=== PATIENT | male | born 1940 | race Caucasian/White ===

== ENCOUNTER → 2016-12-22 | Day surgery (SDC) | payer OTHER ==
[~2016-12-22] VITALS: Ht 180.3 cm; Wt 97.0 kg
[~2016-12-22] MED LIST: ALBU18002 INH; AMLO-114 PO; BISM262S27 PO; CHOLPOW PO; DIPH-416 PO; FENTANYL CITRATE INJ 50 MCG/1 ML 2 ML VIAL ONE; GLIM4TAB2 PO; HEPARIN SOD (PORCINE) 1000 UNIT/ML 10 ML VIAL ONE; LISI-461 PO; LOPE1TAB25 PO; LORA-741 PO; MIDAZOLAM HCL 1 MG/ML 2ML VIAL ONE; NITROGLYCERIN/D5W 100MCG/ML 20ML SYR ONE; NiCARDipine HCL INJ 2.5 MG/ML 10 ML AMP ONE; ONDA4TAB9 PO; OXYC2.5T3 PO; POTA20TA16 PO; SODI650T8 PO; SPRIN/30 INH; SYMIN/8045 INH
[2016-12-22 07:13] VITALS: BP 155/89; PULSE 75; TEMP 36.7; O2SAT 97; Ht 180.3 cm; Wt 97.0 kg
--- NOTE | 2016-12-22 08:10 | Procedure Note ---
Pre-Mod Sedation Assessment General Date of Moderate Sedation: December 22, 2016. Vital Signs: Vital Signs Past 12 Hours Date Time Temp Pulse Resp B/P Pulse Ox O2 Delivery O2 Flow Rate FiO2 12/22/16 07:13 36.7 75 18 155/89 97 Room Air Review Cardiovascular: regular rate, rhythm, no edema Abdomen: normal bowel sounds, non tender Lungs: chest non-tender, lungs clear Airway Class: III Pre-Sedation Airway Assessment Oral Cavity: Dentures, WNL Able to Visualize Vocal Cords: No Short Thick Neck: No Hx of Sleep Apnea: No Smoking Status: Never Smoker Mallampati Classification: Class III ASA Classification: Class III Procedure Planning Contraindications-for Mod Sed: None Yes Notes The planned sedation has been discussed with the patient and consent obtained. I have identified the patient, determined the appropriateness of sedation and have assessed the patient immediately prior to the procedure. All medicine(s) and interventions are by my order.
--- NOTE | 2016-12-22 08:10 | History & Physical Bridge Note ---
H&P Re-Evaluation Bridge Note: I have examined the patient, reviewed the History & Physical and in the interval since the performance of the History & Physical I have noted the following changes of clinical significance: No changes noted
[2016-12-22 08:27] LABS: BASO ABS # 0.09 K/uL (0-0.2); EOS % 4.1 %; IG% 0.1 %; LYMPH % 30.6 %; LYMPH ABS # 2.85 K/uL (1.2-3.4); MEAN CELL VOLUME 93.2 fL (80-100); MEAN CORPUSCULAR HEMOGLOBIN 31.8 pg (25-34); MEAN PLATELET VOLUME 12.4 fL (7.4-10.4); MONO % 9.7 %; NEUT % 54.5 %; PLATELET COUNT 254 K/uL (130-400); RED BLOOD COUNT 5.47 M/uL (4.7-6.1); WHITE BLOOD COUNT 9.32 K/uL (4.8-10.8)
[2016-12-22 08:34] LABS: INR 1.1 (0.9-1.1)
[2016-12-22 08:37] LABS: COMPLETE YES; MEAN CORPUSCULAR HGB CONC 34.1 g/dl (32-36)
[2016-12-22 08:46] LABS: BUN/CREATININE RATIO 16.5 (10-20); CALCIUM 9.3 mg/dl (8.5-10.1); CREATININE 1.2 mg/dl (0.60-1.40); POTASSIUM 4.6 mmol/L (3.5-5.1)
[2016-12-22 09:41] LABS: ISTAT ARTERIAL BLOOD GAS HCO3 28 meq/L (19-24); ISTAT ARTERIAL BLOOD GAS PCO2 51 mmHg (35-46); ISTAT ARTERIAL BLOOD GAS PO2 < 32 mmHg (80-95); ISTAT ARTERIAL BLOOD GAS pH 7.35 (7.35-7.45); ISTAT CARBON DIOXIDE 30 mEq/l (24-31)
--- NOTE | 2016-12-22 10:04 | Procedure Note ---
Post-Mod Sedation Assessment General Date of Moderate Sedation December 22, 2016. Vital Signs: Vital Signs Past 12 Hours Date Time Temp Pulse Resp B/P Pulse Ox O2 Delivery O2 Flow Rate FiO2 12/22/16 07:13 36.7 75 18 155/89 97 Room Air Review - Discharge Criteria Vital Signs Stable: Yes Alert/Oriented/Conversant: Yes Returned to Baseline Mental St: Yes Nausea Absent/Minimal: Yes Pain/Discomfort/Absent/Minimal: Yes Normal/Baseline Respirations: Yes Active Bleeding?: No Pt Received D/C Instructions: No Prescriptions Given: None Specific Proced. D/C Criteria Distal Pulses Present (Cardiac: Yes Groin site assessed-Card Cath: N/A Voided Prior To Discharge: N/A Discharged Patients Adult Escort/Transportation: Yes
[2016-12-22 10:09] LABS: ISTAT ARTERIAL BLOOD GAS HCO3 27 meq/L (19-24); ISTAT ARTERIAL BLOOD GAS PCO2 48 mmHg (35-46); ISTAT ARTERIAL BLOOD GAS PO2 52 mmHg (80-95); ISTAT ARTERIAL BLOOD GAS pH 7.36 (7.35-7.45); ISTAT CARBON DIOXIDE 28 mEq/l (24-31)
--- NOTE | 2016-12-22 12:37 | Discharge Instructions ---
Discharge Instructions Procedure Procedure Date: December 22, 2016. Reason for Visit: Dyspnea On Exertion. Discharge Discharge Date: December 22, 2016. Discharge Diagnosis: Pulmonary Hypertension Last Recorded Wt (Kilograms): 97 Anesthesia Post Anesthesia Instructions: If you have had General Anesthesia or IV Sedation: * Do not drive today. * Resume driving when surgeon permits. * Do not make important decisions or sign legal documents today. * Call surgeon for: 1. Temperature elevations greater than 101 degrees F. 2. Uncontrollable pain. 3. Excessive bleeding. 4. Persistent nausea and vomiting. 5. Medication intolerance (nausea, vomiting or rash). * For nausea and vomiting use only clear liquids such as: tea, soda, bouillon until nausea subsides, then gradually increase diet as tolerated. * If you have any concerns or questions, call your surgeon's office. If physician is unavailable and it is an emergency, call 911 or go to the nearest emergency room. Instructions Activity Recommendations: limitations as noted below Recommended Home Diet: resume previous diet Allergies: Coded Allergies: Cephalexin (Unverified Allergy, Unknown, UNKNOWN, 12/22/16) Gemfibrozil (Unverified Allergy, Unknown, UNKNOWN, 12/22/16) Lovastatin (Unverified Allergy, Unknown, UNKNOWN, 12/22/16) Follow Up Additional Instructions: ACTIVITY RECOMMENDATIONS: It is common to feel weak and fatigue for a few days. * Do not drive or operate any motorized equipment for the next two days. * Limit stair usage (2 or 3 trips a day only) for the next two days. * Do not lift anything heavier than 10 pounds for the next three days. * Do not engage in vigorous exercise or any sports for the next five days. * You may shower the day after your procedure, but do not immerse the area for three days. Cleanse the site gently with soap and water. SPECIAL CARE INSTRUCTIONS: * You may replace the pressure dressing or band-aid the morning after the procedure. * After your procedure, it is normal to have a small bruise or small lump at the site. Examine your site daily for any change in the bruise or lump, redness, swelling, drainage or numbness. Notify your doctor if any change. BLEEDING: * If there is a small amount of bleeding at the site, lie down and apply firm pressure with a clean cloth for ten minutes. When the bleeding stops, lie quietly keeping the procedure limb straight for six hours. Notify your doctor as soon as possible. * If the bleeding does not stop after ten minutes or if there is a large amount of bleeding or spurting, call 911 immediately. Continue to lie down and hold firm pressure until help arrives. SKIN IRRITATION: * You may experience some redness and/or swelling in the area where radiation was administered. If any skin irritation occurs, please contact your family physician. FOLLOW UP VISIT: Keep any scheduled doctor appointments. Follow-up with: Follow-up with Dr. Valverde in 1 week. Thelma Harrisy Recommendations: Call your doctor if: * Temperature above 101 degrees * Pain not relieved by pain medicine ordered * There is increased drainage or redness from any incision * You have any unanswered questions or concerns. Your Doctors Instructions noted above were prepared by provider Michelet Valverde. Patient Signature Section: Patient Instructions Signature Page Branden Galeana Patient (or Guardian) Signature/Date: I have read and understand the instructions given to me by my caregivers. Caregiver/RN/Doctor Signature/Date: The above-named patient and/or guardian has received patient instructions on this date. + Original Patient Signature Page (only) stays with chart. Please make copy for patient.
[2016-12-22 12:50] VITALS: BP 128/89; PULSE 78; O2SAT 96
--- NOTE | 2016-12-22 16:45 | Cardiac Catheterization ---
Procedure Note Procedure Date December 22, 2016. Pre-Procedure Diagnosis Angina, Cardiothoracic Symptom AUC Score 7 Post-Procedure Diagnosis Mild CAD, Elevated Intracardiac Pressures Procedure(s) Performed Coronary Angiography, Left Heart Cath, Right Heart Cath, Ultrasound Guided Vascular Access Train Control Technician Dr. Valverde Bed Machine Operator(s) Soliz Estimated Blood Loss 10 Medication(s) Fentanyl, Heparin, Nitroglycerin, Versed, Lidocaine 1% Summary of Findings Indication: Dyspnea on exertion/chest pain/suspected pulmonary hypertension Access: 6Fr Right Radial Artery, 6Fr Right femoral vein Catheters: [place], 6Fr [place] Findings: LM - Angiographically normal LAD - Mid segment with 20-30% stenosis, distal luminal irregularities. Circumflex - Small, non-dominant, angiographically normal RCA - Dominant, large caliber vessel, angiographically normal. RHC - RA 9 RV 92/14 PA 92/32 (54) PCW 6 AoSat 85 PaSat 57 NICKI/CI 3.88/1.76 TPG 47 mmHg PVR 12 Wood units LVEDP - 7 Arterial Closure: TR Band Summary: 1. Minimal non-obstructive coronary artery disease - 20-30% mid LAD stenosis 2. Severe pulmonary arterial hypertension [92/32 (54), TPG 47, PVR 12] 3. Reduced cardiac output. Mildly elevated right sided filling pressures Recommendations: Evaluation for possible PH therapy. Gentle diuretics, oxygen therapy. ASCVD risk factor modification Hemodynamics Rest Ao: 127/74/97 Final Ao: 129/75/98 LV: 140/7 Recommendations Medical therapy and/or Counseling Specimens None Radiation Exposure (mGy) 1350 Contrast (mls) 50 Visipaque Fluids (cc crystalloids) 125 Drains none Anesthesia moderate Procedural Complication(s) None Disposition Violin Restorer Holding/Recovery [facility] Data Cardiac Status Clinical evaluation leading to the procedure CAD Presntation: Sx unlikely to be ischemic, Stable angina Anginal Classification: CCS III Heart Failure: Yes, NYHA Class: CCS II Cardiogenic Shock w/in 24Hrs: No Cardiac Arrest w/in 24Hrs: No Imaging studies past 6 months: Yes Stress studies past 6 months: No Standard Exercise Stress Test: No Stress Echocardiogram: Yes - Indeterminant Stress Testing w/SPECT MPI: No Cardiac CTA: No Coronary Anatomy Dominant: Right Left Main (% Stenosis): Normal LAD (% Stenosis): Mid (20-30) Circumflex (% Stenosis): Normal RCA (% Stenosis): Normal Diagnostic Physician's Name: Dorian Valverde MD Status: Elective Closure Device Percutaneous Entry Location: Radial Closure Device: Radial Band Recommendations: Medical therapy and/or Counseling Intraprocedure Events Significant Dissection: No Perforation: No
== END | disposition home or self-care (01) ==
LOC: C.CATH 06:16
PROVIDERS: ATTEND Internal Medicine Interventional Cardiology
DX: I25.119 Atherosclerotic heart disease of native coronary artery with unspecified angina pectoris (principal); I35.0 Nonrheumatic aortic (valve) stenosis; C7A.8 Other malignant neuroendocrine tumors; I27.2 Other secondary pulmonary hypertension; E11.49 Type 2 diabetes mellitus with other diabetic neurological complication; E11.65 Type 2 diabetes mellitus with hyperglycemia; I10 Essential (primary) hypertension; E78.5 Hyperlipidemia, unspecified; Z79.899 Other long term (current) drug therapy

== ENCOUNTER → 2017-11-05 | Outpatient (CLI) | payer OTHER ==
[~2017-11-05] MED LIST changes: -FENTANYL CITRATE INJ 50 MCG/1 ML 2 ML VIAL ONE; -HEPARIN SOD (PORCINE) 1000 UNIT/ML 10 ML VIAL ONE; -MIDAZOLAM HCL 1 MG/ML 2ML VIAL ONE; -NITROGLYCERIN/D5W 100MCG/ML 20ML SYR ONE; -NiCARDipine HCL INJ 2.5 MG/ML 10 ML AMP ONE
[2017-11-06 08:39] LABS: HEMOGLOBIN A1C 10.1 % (4.5-5.6)
== END | disposition home or self-care (01) ==
LOC: C.LABMFLN 15:25
PROVIDERS: ATTEND Family Medicine
DX: E11.49 Type 2 diabetes mellitus with other diabetic neurological complication (principal)

== ENCOUNTER 2020-06-12 13:41 | Inpatient (IN) ==
--- NOTE | 2020-06-12 14:20 | Emergency Department Note ---
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 Patient states both legs are swollen but have not been weeping any liquid. Patient states he has dyspnea on exertion and some diffuse body pains both in his legs and in his chest at times. States he is been also having some intermittent pain in his stomach that has been attributing to his cancer. Denies syncope or falls. Denies fever. Patient states he has congestion but is not having significant cough. Patient denies a history of tobacco usage states he is chewed tobacco in the past. Patient states he is oxygen contract at home and has been using between 2 to 5 L of oxygen to help with his breathing but again feels like it is getting worse. Patient has an unfortunate history of cancer and not currently on treatment and has been working towards comfort care and states he has all the components of hospice in place but to call them and "activate it ". Patient states he has been using a diuretic pill but it has not been helping that much. Patient endorses some fatigue. Is been using some Percocet for pain control. REVIEW OF SYSTEMS: A total of 10 review of systems was obtained and negative except as stated above in the HPI. PAST MEDICAL HISTORY: As noted above MEDICATIONS: Reviewed home medication listing SOCIAL HISTORY: Chews tobacco, lives by himself PHYSICAL EXAM: GENERAL: alert and oriented sitting on the edge of the stretcher with nasal cannula oxygen in place with some slight work of breathing. Head: normocephalic and atraumatic EYES: No injection, discharge or icterus. NECK: Trachea midline. LUNGS: Airway patent. Some increased work of breathing with diminished lower lung sounds and coarse crackles. HEART: Regular rate and rhythm. No chest wall tenderness ABDOMEN: Soft and non-tender, without guarding or rebound. SKIN: Acyanotic, warm, dry, without rashes EXTREMITIES: 2-3+ lower extremity edema of the bilateral legs to the thighs with some mild bilateral erythema likely secondary to stasis. No large open wounds or weeping appreciated. Some slight small blistering around the lateral toes is appreciated. NEUROLOGICAL: No focal deficits. No aphasia. No facial droop or slurred speech. EK bpm sinus rhythm with first-degree AV block with a right bundle branch block with diffuse anterior T wave inversions as well as some inferior T wave inversions. Do not see clear ST segment elevation at this time. No PVC or PAC noted. Comparing this EKG to previous available in the [facility] system from May 09, 2019 appears similar. CONTINUOUS CARDIAC MONITORING: was ordered and showed a heart rate of 84 bpm in sinus rhythm first-degree AV block Patient's laboratory studies and imaging reviewed. Differential includes Reactive airway disease, pneumonia, pneumothorax, COPD, CHF, infections, cardiac ischemia, pulmonary embolism, musculoskeletal, gastrointestinal, as well as other pathologies. IMPRESSION/MEDICAL DECISION MAKING: Reviewed medical records in our system and from [place] admission last April for GI bleed. Patient with complex history and unfortunate history of neuroendocrine tumor not currently receiving therapy. Patient does not want aggressive treatment. Discussed with him basic labs EKG and chest x-ray related for quick reversible cause for his symptoms. Patient states he does have hospice set up but has not yet started it. Has been on some furosemide. Is somewhat dyspneic with any exertion and pulse ox around 90 on 4 to 5 L of oxygen here. Discussed with him options of pursuing blood clot/PE work-up with a history of GI bleed and his wish for comfort in discussion with him while he was aware of the risks will defer. Abdomen is not peritoneal. No appreciable fluid wave and I doubt significant abdominal ascites. No fever reported or sick contact and lower suspicion at this time for coronavirus. Patient does have so me cardiac history including aortic stenosis and pulmonary hypertension may be worsening he has gross evidence of fluid overload. EKG is abnormal but similar to previous from just over a year ago in the [facility] system. Chest x-ray per my review and radiology interpretation with evidence of what appears to be likely a right pleural effusion question of atelectasis versus pneumonia. Cardiomegaly noted but clear left diaphragm. CBC without significant anemia and no leukocytosis. There was some hemolysis of the sample with potassium returning of 5.7. Believe this is likely somewhat artifactual with the hemolysis noted of the sample. Creatinine does appear to be rising to 1.7 today from previous baseline around 1.2-1.3. Small troponin elevation noted without prior testing in our system unsure if chronic or acute. Patient does not wish for extensive cardiac management at this point I feel that this is likely more demand related to some CKD as well as fluid overload state. Discussed with the patient laboratory and x-ray findings. Believe he is likely experiencing generalized fluid overload and possibly developing pleural effusion related to this. Does have some underlying cardiac dysfunction with stenosis noted on prior history as well as a history of pulmonary hypertension doc umented. Discussed with him elevation of the legs. Do not feel the patient requires antibiotic at this time as I doubt it is infectious. Given additional dose of Lasix for some of the fluid overload symptoms he is experiencing. Discussed with patient he would NOT want a large surgical procedure and again declined any wish for anticoagulation and thus we will not look for PE at this time. Does not want further cardiac work-up either at this point just wants his breathing to feel improved. Discussed with him given that he feels short of breath this lives by himself further observation here in the hospital and consideration of possible thoracentesis by the pulmonary service if not improvi ng with monitor diuresis here. He was agreement with this plan and his daughter was as well as he did not feel well enough to go home at this time. The hospitalist contacted. DIAGNOSIS: Fluid overload, shortness of breath, edema lower legs, right pleural effusion DISPOSITION: Hospitalist will evaluate Patient was agreeable with this plan. Past Med/Surg History Medical History (Updated 06/12/20 @ 21:21 by Alin Parry M.D.) Aortic valve stenosis 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, uncontrolled Dyslipidemia GI bleed H/O transfusion of packed red blood cells HTN, goal below 140/90 Neuroendocrine tumor of liver Neuroendocrine tumor of pancreas Pulmonary hypertension Surgical History (Updated 09/12/19 @ 13:42 by Amy Amaral MA) H/O arthroscopic knee surgery History of cardiac cath History of hemorrhoidectomy Family History (Updated 06/20/19 @ 14:48 by Paula Sanchez MA) Mother Heart disease Father Bladder cancer Social History (Updated 12/02/19 @ 15:05 by Dawna Florentino PA-C) Smoking Status: Never smoker Hx Alcohol Use: Yes Alcohol Intake Frequency Comment: social Hx Substance Use: No marital status: / Feels Safe at Home: Yes Allergies Allergies Allergy/AdvReac Type Severity Reaction Status Date / Time cephalexin Allergy Unknown UNKNOWN Verified 06/12/20 17:22 gemfibrozil Allergy Unknown UNKNOWN Verified 06/12/20 17:22 lovastatin Allergy Unknown UNKNOWN Verified 06/12/20 17:22 Home Meds Home Medications Medication Instructions Recorded Confirmed fluticasone fur. 100 mcg-umeclid 1 puffs INH DAILY 06/20/19 06/12/20 62.5 mcg-vilant 25 mcg inhalat.powder potassium chloride 20 mEq 20 meq PO BID tab 06/22/19 06/12/20 tablet,extended release Previous Rx's Medication Instructions Recorded triamcinolone acetonide 0.1 % 1 appln TOP BID PRN #80 gm 07/04/19 topical cream furosemide 20 mg tablet 20 mg PO DAILY #90 tab 09/26/19 insulin glargine U-300 conc 300 33 units SQ HS 90 Days #12 ml 01/16/20 unit/mL (3 mL) subcutaneous pen glimepiride 4 mg tablet 4 mg PO BIDM #60 tab 01/31/20 lisinopril 30 mg tablet 30 mg PO DAILY #34 tab 01/31/20 albuterol sulfate 90 mcg/actuation 1 inh INH Q4H PRN #8.5 g 05/01/20 aerosol inhaler oxycodone-acetaminophen 2.5 mg-325 1 tab PO Q8H PRN #90 tab MDD 3 05/03/20 mg tablet daily Results & Data (ED) Vital Signs Vital Signs - 24 hr 06/12/20 13:46 06/12/20 14:00 06/12/20 14:30 Temperature 36.5 C Temperature Source Oral Pulse Rate 82 82 79 Pulse Rate from SpO2 Sensor 80 Respiratory Rate 24 20 26 H Blood Pressure 130/74 Blood Pressure Mean 92 Pulse Oximetry 86 L Oxygen Delivery Method Room Air Oxygen Flow Rate Sepsis Recent Fever Within 48 Hours No Sepsis New/Unexplained Change in Mental Status N/A Sepsis Action Taken by Nursing No Action Required Oxygen Flow Rate - Titration 5 06/12/20 14:39 06/12/20 14:40 06/12/20 15:00 Temperature Temperature Source Pulse Rate 76 77 Pulse Rate from SpO2 Sensor 76 78 Respiratory Rate 23 26 H Blood Pressure 139/89 134/85 Blood Pressure Mean 99 117 Pulse Oximetry 99 96 95 Oxygen Delivery Method Oxymask Oxygen Flow Rate 5 5 5 Sepsis Recent Fever Within 48 Hours Sepsis New/Unexplained Change in Mental Status Sepsis Action Taken by Nursing Oxygen Flow Rate - Titration 06/12/20 15:30 06/12/20 16:00 06/12/20 16:30 Temperature Temperature Source Pulse Rate 81 73 80 Pulse Rate from SpO2 Sensor 82 81 80 Respiratory Rate 24 20 27 H Blood Pressure 136/69 131/91 139/81 Blood Pressure Mean 103 104 92 Pulse Oximetry 94 92 97 Oxygen Delivery Method Oxygen Flow Rate 5 5 5 Sepsis Recent Fever Within 48 Hours Sepsis New/Unexplained Change in Mental Status Sepsis Action Taken by Nursing Oxygen Flow Rate - Titration 06/12/20 17:00 06/12/20 17:30 06/12/20 18:00 Temperature Temperature Source Pulse Rate 78 75 74 Pulse Rate from SpO2 Sensor 79 75 74 Respiratory Rate 19 22 20 Blood Pressure 128/91 132/90 137/63 Blood Pressure Mean 109 98 91 Pulse Oximetry 95 95 91 Oxygen Delivery Method Oxygen Flow Rate 5 5 5 Sepsis Recent Fever Within 48 Hours Sepsis New/Unexplained Change in Mental Status Sepsis Action Taken by Nursing Oxygen Flow Rate - Titration Laboratory Data Result diagrams: 06/12/20 14:40 06/12/20 14:40 Lab Results 06/12/20 06/12/20 06/12/20 Range/Units 14:40 14:40 14:40 WBC 7.51 (4.8-10.8) K/uL RBC 4.99 (4.7-6.1) M/uL Hgb 14.2 (14.0-18.0) g/dL Hct 46.3 (42-52) % MCV 92.8 (80-100) fL MCH 28.5 (25-34) pg MCHC 30.7 L (32-36) g/dL RDW Std Deviation 56.7 H (36.4-46.3) fL RDW Coeff of Wale 16.6 H (11.5-14.5) % Plt Count 224 (130-400) K/uL MPV 12.1 H (7.4-10.4) fL Immature Gran % (Auto) 0.1 % Neut % (Auto) 65.9 % Lymph % (Auto) 17.4 % [place] % (Auto) 14.6 % Eos % (Auto) 1.6 % Baso % (Auto) 0.4 % Neut # (Auto) 4.94 (1.4-6.5) K/uL Lymph # (Auto) 1.31 (1.2-3.4) K/uL [place] # (Auto) 1.10 H (0.11-0.59) K/uL Eos # (Auto) 0.12 (0-0.5) K/uL Baso # (Auto) 0.03 (0-0.2) K/uL Immature Gran # (Auto) 0.01 (0.00-0.02) K/uL PT 12.8 H (9.0-12.0) Seconds INR 1.2 H (0.9-1.1) APTT 30.1 (21.0-31.0) Seconds PTT Ratio 1.1 Sodium 139 (136-145) mmol/L Potassium 5.7 H (3.5-5.1) mmol/L Chloride 107 (98-107) mmol/L Carbon Dioxide 32 (21-32) mmol/L Anion Gap 0 L (3-11) BUN 40 H (7-18) mg/dl Creatinine 1.71 H (0.6-1.4) mg/dl Est Cr Clr Drug Dosing 45.9 ml/min Est GFR ( Amer) 43.5 Est GFR (Non-Af Amer) 37.5 BUN/Creatinine Ratio 23.3 H (10-20) Glucose 120 H (70-99) mg/dl Calcium 9.3 (8.5-10.1) mg/dl Total Bilirubin 1.6 H (0.2-1) mg/dl AST 42 H (15-37) U/L ALT 30 (12-78) U/L Alkaline Phosphatase 111 (45-117) U/L Troponin I 0.067 H* (0-0.045) ng/ml Total Protein 8.0 (6.4-8.2) gm/dl Albumin 3.8 (3.4-5.0) gm/dl Globulin 4.2 H (2.5-4.0) gm/dl Albumin/Globulin Ratio 0.9 (0.9-2) Specimen Hemolysis Administered Medications Discontinued Medications Albuterol (Albut/Ipratrop 3mg/0.5mg Neb 3 Ml Vial) 12 ml NEB ONE ONE Stop: 06/12/20 17:38 Last Admin: 06/12/20 20:27 Dose: Not Given Documented by: [id number] Furosemide (Furosemide 40 Mg/4 Ml Vial) 20 mg IV NOW STA Stop: 06/12/20 16:28 Last Admin: 06/12/20 16:29 Dose: 20 mg Documented by: [id number] Discharge Plan Visit Data Chief Complaint: Shortness of Breath/Dyspnea Stated Complaint: SOB,SWELLING TO BILAT FEET ED Provider: Alin Parry Discharge Problem: Breathlessness, Edema of both lower legs, Chest pain, Pleural effusion Patient Disposition: Admitted As Inpatient Discharge Instructions Interventions: ED Discharge Assessment Last Done: 06/12/20 19:20 Discharge Problem: Chest pain Qualifiers: Chest pain type: unspecified Qualified Code(s): R07.9 - Chest pain, unspecified
--- NOTE | 2020-06-12 14:52 | XRay Report ---
XR chest 1V portable HISTORY: 79 years-old Male sob, swelling acute shortness of breath with edema COMPARISON: None TECHNIQUE: Portable AP view of the chest FINDINGS: Cardiac silhouette is moderately enlarged. The left lung is clear. Small to moderate right pleural ef fusion with right lung base consolidation. No overt pulmonary edema. Degenerative changes of the shou lders and spine. IMPRESSION: 1. Right pleural effusion with right lung base consolidation suggestive of atelectasis versus pneumon ia. 2. Cardiomegaly without overt pulmonary edema. ACT 112: Negative or not required by law. The above report was generated using voice recognition software. It may contain grammatical, syntax o r spelling errors. Electronically signed by: Jamie Morgan M.D. 06/12/2020 2:50 PM
[2020-06-12 15:00] LABS: Basophils # (auto) 0.03 K/uL (0-0.2); Basophils % (auto) 0.4 %; Eosinophils # (auto) 0.12 K/uL (0-0.5); Eosinophils % (auto) 1.6 %; Hematocrit (blood only) 46.3 % (42-52); Hemoglobin 14.2 g/dL (14.0-18.0); Immature Granulocytes # (auto) 0.01 K/uL (0.00-0.02); Immature Granulocytes % (auto) 0.1 %; Lymphocytes # (auto) 1.31 K/uL (1.2-3.4); Lymphocytes % (auto) 17.4 %; Mean Corpuscular Hemoglobin 28.5 pg (25-34); Mean Corpuscular Hgb Conc 30.7 g/dL (32-36); Mean Corpuscular Volume 92.8 fL (80-100); Mean Platelet Volume 12.1 fL (7.4-10.4); Monocytes % (auto) 14.6 %; Neutrophils # (auto) 4.94 K/uL (1.4-6.5); Neutrophils % (auto) 65.9 %; Platelet Count 224 K/uL (130-400); RDW Coefficient of Variation 16.6 % (11.5-14.5); RDW Standard Deviation 56.7 fL (36.4-46.3); Red Blood Count 4.99 M/uL (4.7-6.1); White Blood Count 7.51 K/uL (4.8-10.8)
[2020-06-12 15:29] LABS: Albumin Level 3.8 gm/dl (3.4-5.0); BUN Creatinine Ratio 23.3 (10-20); Calcium 9.3 mg/dl (8.5-10.1); Creatinine Clr Calc Pharmacy 45.9 ml/min; Est GFR (African American) 43.5; Est GFR (Non-African American) 37.5; Potassium 5.7 mmol/L (3.5-5.1)
[2020-06-12 15:44] LABS: Albumin Globulin Ratio 0.9 (0.9-2); Bilirubin,Total 1.6 mg/dl (0.2-1); Globulin 4.2 gm/dl (2.5-4.0); Troponin I 0.067 ng/ml (0-0.045)
[2020-06-12 16:08] LABS: INR 1.2 (0.9-1.1); Partial Thromboplastin Ratio 1.1; Partial Thromboplastin Time 30.1 Seconds (21.0-31.0); Prothrombin Time 12.8 Seconds (9.0-12.0)
[2020-06-12] MEDS ORDERED: FUROSEMIDE 40 MG/4 ML VIAL IV STA (16:27)
[2020-06-12] MEDS ORDERED: ALBUT/IPRATROP 3MG/0.5MG NEB 3 ML VIAL NEB ONE (17:37)
--- NOTE | 2020-06-12 18:18 | History & Physical Report ---
Date of Service June 12, 2020 Assessment & Plan (1) Acute respiratory failure with hypoxia: Aim O2 sats > 94%. See below for differential. (2) Shortness of breath: Chronically short of breath as per [facility] discharge summary in May 2019, however acutely much worse in the last 2 days. ?secondary diastolic heart failure +/- aortic stenosis +/- asthma/COPD exacerbation +/- obesity hypoventilation +/- RICA. No WBC and history not suggestive of PNA, although may need to be considered if not improving. Will avoid CT for PE given current renal function but get US venous doppler to assess for DVT. (3) Asthma exacerbation: No prior PFTs available however noted on discharge summary and [facility] notes that he was diagnosed with obstructive lung disease. Hour long duoneb ordered. If improvement will add IV solu-medrol and JOY duonebs. (4) Diastolic heart failure: Appears to be mainly right sided and prior diagnosis of pulmonary hypertension although unclear whether this is primary or secondary. Lasix 20mg IV given in ER. Given current elevated Cr will defer further diuretics at the current time (he usually doesn't take any) and monitor Cr response but likely to need higher dosing tomorrow. Low Na diet, Fluid restrict 1500ml Measure I&Os Daily weights Consider TTE if patient amenable. (5) Pulmonary hypertension: Likely (6) Aortic valve stenosis: No murmur on exam although very quiet heart sounds, no prior echo available. Patient does not wish to have TTE at current time as would not change coordinator. (7) Edema of both lower legs: As above regarding diastolic heart failure. US venous doppler b/l to rule out DVT. (8) Neuroendocrine tumor of pancreas: Recently on Lanreotide injections. Per Dr Mcintosh's (PCP notes) patient wanting more comfort measures although this is not suggested in his heme/onc notes the patient mentions wanting more of a comfort approach today but when asked about getting CT scans if needed to work up his breathing he is on board with that. (9) Constipation: Start MiraLAX daily. Monitor BM. Possibly contributing towards abdominal distension and dyspnea. 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 Repeat with AM labs. T2DM diet. Hold glimepiride during inpatient stay. Switch U-300 33 units HS to Lantus 20 units BID with Novolog sliding scale for correction and carb coverage. (11) Right bundle branch block: Chronic per prior notes (12) DVT prophylaxis: Heparin 7500 units SQ Q8H (increased dosing due to weight). Close monitoring of Hgb given prior GI bleed and steroid use as above. 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 His daughter reports he is supposed to take his lasix more often than he does and his shortness of breath and leg swelling have both significantly increased over the last 2-3 days. He is now unable to exert himself in any significant way without getting extremely short of breath. No fevers or chills, chest pain, cough, known COVID-19 exposure. No worse on lying down, he actually feels his breathing improves while lying down. Tried his albuterol inhaler this morning. He reports never smoking but was diagnosed with asthma/COPD within the last few years and takes Trelegy Ellipta daily. Prior discharge summary from [facility] notes obstructive lung disease with prior PFTs although results not available on this admission. History taking is relatively limited from the patient and his therefore much was taken from prior notes in EHR. Per last PCP note patient wanting more of a comfort measures only approach although wishes to have workup for his breathing at the current time and does not wish to only be treated symptomatically. Much of the last PCP note patient has refused increasing treatment for his diabetes, aortic stenosis etc... However heme/onc note reports ongoing treatment with no mention of plans for a more palliative care approach. In the ER CXR showed right sided pleural effusion with right lung base consolidation suggestive of atelectasis vs. pneumonia. He was treated for suspected hypervolemia with Lasix 20mg IV. Allergies Allergy/AdvReac Type Severity Reaction Status Date / Time cephalexin Allergy Unknown UNKNOWN Verified 06/12/20 17:22 gemfibrozil Allergy Unknown UNKNOWN Verified 06/12/20 17:22 lovastatin Allergy Unknown UNKNOWN Verified 06/12/20 17:22 Home Medications Home Medications Medication Instructions Recorded Confirmed Type fluticasone fur. 100 mcg-umeclid 1 puffs INH DAILY 06/20/19 06/12/20 History 62.5 mcg-vilant 25 mcg inhalat.powder potassium chloride 20 mEq 20 meq PO BID tab 06/22/19 06/12/20 History tablet,extended release triamcinolone acetonide 0.1 % 1 appln TOP BID PRN #80 gm 07/04/19 06/12/20 Rx topical cream furosemide 20 mg tablet 20 mg PO DAILY #90 tab 09/26/19 06/12/20 Rx insulin glargine U-300 conc 300 33 units SQ HS 90 Days #12 ml 01/16/20 06/12/20 Rx unit/mL (3 mL) subcutaneous pen glimepiride 4 mg tablet 4 mg PO BIDM #60 tab 01/31/20 06/12/20 Rx lisinopril 30 mg tablet 30 mg PO DAILY #34 tab 01/31/20 06/12/20 Rx albuterol sulfate 90 mcg/actuation 1 inh INH Q4H PRN #8.5 g 05/01/20 06/12/20 Rx aerosol inhaler oxycodone-acetaminophen 2.5 mg-325 1 tab PO Q8H PRN #90 tab MDD 3 05/03/20 06/12/20 Rx mg tablet daily Past Med/Surg History Medical History (Updated 06/13/20 @ 06:38 by Harjinder Castro MD) Aortic valve stenosis 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, uncontrolled Dyslipidemia GI bleed H/O transfusion of packed red blood cells HTN, goal below 140/90 Neuroendocrine tumor of liver Neuroendocrine tumor of pancreas Pulmonary hypertension Surgical History (Updated 09/12/19 @ 13:42 by Amy Amaral MA) H/O arthroscopic knee surgery History of cardiac cath History of hemorrhoidectomy Family History (Updated 06/20/19 @ 14:48 by Paula Sanchez MA) Mother Heart disease Father Bladder cancer Social History (Updated 12/02/19 @ 15:05 by Dawna Florentino PA-C) Smoking Status: Never smoker Second Hand Exposure: No; Do You Dip or Chew Tobacco: Yes (QUIT 60 YERARS AGO); Tobacco Cessation Education Requested by Patient: No Hx Alcohol Use: Yes Alcohol type: hard liquor Alcohol Intake Frequency Comment: social Hx Substance Use: No Preferred Language: Senegalese Communication Ability: Effective Lithographic Etcher Required: No Beliefs That Will Affect Care: None marital status: / Current Living Situation: Alone Other Information That Helps Us Care for You: No Feels Safe at Home: Yes Safety Concerns: Feels Safe At This Time Assistive Devices: Denture - Upper and Oxygen - Continuous Review of Systems Review of Systems: All systems reviewed & are unremarkable except as noted in HPI & below Gastrointestinal: + constipation (although notably from PCP and heme/notes has been having diarrhea problems) Physical Exam Constitutional: well developed and + obese; + not well nourished and no acute distress Eyes: + anicteric sclerae; normal pupil size ENMT: Ears: no external ear abnormality Nose: no external nose abnormality Mouth: + dry oral mucous membranes Neck: trachea midline, no thyromegaly Respiratory: + respiratory distress, + labored breathing, + retractions, + uses accessory muscles, able to speak in complete sentences and + prolonged expiratory phase; + abnormal respiratory effort and no cough Auscultation: + diminished lung sounds (bibasal) and + wheezes (throughout); no crackles, no rales and no rhonchi Cardiovascular: Rate/Rhythm: regular rate and regular rhythm Heart Sounds: no murmur (very quiet heart sounds) Vessels: no JVD (difficult to assess with neck size) Extremities: normal capillary refill and + pedal edema (b/l 3+ to mid thighs); no calf tenderness Gastrointestinal (Abdomen): normal bowel sounds, soft, nontender, no hepatosplenomegaly Musculoskeletal: no cyanosis or clubbing, extremities motor strength 5/5 Skin: no rashes, warm and dry (no cellulitic areas) Neurologic: moves all extremities and awake; no focal motor deficits and not confused Psychiatric: A+Ox3, euthymic affect Results & Data Results & Data ([facility]) Vital Signs (Past 12 Hours) Vital Signs Temp Pulse Resp BP Pulse Ox 06/12/20 17:00 78 19 128/91 95 06/12/20 16:30 80 27 H 139/81 97 06/12/20 16:00 73 20 131/91 92 06/12/20 15:30 81 24 136/69 94 06/12/20 15:00 77 26 H 134/85 95 06/12/20 14:40 96 06/12/20 14:39 76 23 139/89 99 06/12/20 14:30 79 26 H 06/12/20 14:00 82 20 06/12/20 13:46 36.5 C 82 24 130/74 86 L Code Status & VTE Plan Code Status DNR/DNI as discussed with the patient VTE Prophylaxis Plan VTE Prophylaxis will be ordered: Yes PG Care Time/CCT Total # of Minutes Spent Total Time Spent with Patient: Total time spent is greater than 50% in coord ination of care (as documented) at patient's floor/unit and/or counseling patient: Coding Level of Care Code 78401 Initial Inpt Care Lvl 3 Diagnoses Acute respiratory failure with hypoxia J96.01 Shortness of breath R06.02 Asthma exacerbation J45.901 Diastolic heart failure I50.30 Pulmonary hypertension I27.20 Aortic valve stenosis I35.0 Edema of both lower legs R60.0 Neuroendocrine tumor of pancreas D3A.8 Constipation K59.00 Diabetes mellitus with neurological manifestations, uncontrolled E11.49; E11.65 Right bundle branch block I45.10 DVT prophylaxis Z29.9
--- NOTE | 2020-06-12 19:08 | Ultrasound Report ---
BILATERAL LOWER EXTREMITY VENOUS DOPPLER HISTORY: Acute pain and swelling of the bilateral lower extremities r/o DVT COMPARISON STUDY: None. FINDINGS: There is normal compressibility, flow, and augmentation within the bilateral lower extremit y deep venous systems. Subcutaneous edema of the lower legs. IMPRESSION: No DVT within the right or left lower extremity. ACT 112: Negative or not required by law. Electronically signed by: Jamie Morgan M.D. 06/12/2020 7:06 PM
[2020-06-12] MEDS ORDERED: TRIAMCINOLONE ACET 0.1% CR 15 GM TUBE TOP PRN (20:10)
[2020-06-12] MEDS ORDERED: GLUCAGON FOR INJ 1 MG VIAL SQ PRN (20:10)
[2020-06-12] MEDS ORDERED: GLUCOSE 10 TABS/TUBE PO PRN (20:10)
[2020-06-12] MEDS ORDERED: DEXTROSE 50% 50 ML SYRINGE IV PRN (20:10)
[2020-06-12] MEDS ORDERED: GLUCOSE 40% GEL 15 GM TUBE PO PRN (20:10)
[2020-06-12] MEDS ORDERED: ALBUT/IPRATROP 3MG/0.5MG NEB 3 ML VIAL NEB STA (21:10)
[2020-06-12] MEDS: INSULIN ASPART 100 UNITS/ML 3 ML PEN SC SCH (21:33)
[2020-06-12] MEDS: INSULIN GLARGINE SOLOSTAR 100 UNITS/ML 3 ML PEN SC SCH (21:34)
[2020-06-12] MEDS: POLYETHYLENE (MIRALAX) 17 GM PACK PO SCH (21:35)
[2020-06-12] MEDS ORDERED: methylPREDNISolone 60 MG in SYRINGE 0 ML IV STA (22:13)
[2020-06-12] MEDS: HEPARIN SOD 5,000 UNIT/0.5 ML VIAL SQ SCH (22:31)
[2020-06-13] MEDS: HEPARIN SOD 5,000 UNIT/0.5 ML VIAL SQ SCH ×3 (05:28→20:13)
--- NOTE | 2020-06-13 06:22 | Electrocardiogram Report ---
Test Reason : Blood Pressure : / mmHG Vent. Rate : 080 BPM Atrial Rate : 080 BPM P-R Int : 218 ms QRS Dur : 172 ms QT Int : 446 ms P-R-T Axes : 064 105 -35 degrees QTc Int : 514 ms Sinus rhythm with 1st degree A-V block Right bundle branch block Septal infarct , age undetermined T wave abnormality, consider inferolateral ischemia Abnormal ECG No previous ECGs available Confirmed by Raji Parker ([id number]) on 06/13/2020 6:22:23 AM Referred By: Damien Mcintosh Confirmed By:Raji Parker
[2020-06-13] MEDS: ALBUT/IPRATROP 3MG/0.5MG NEB 3 ML VIAL NEB SCH ×4 (07:03→19:07)
[2020-06-13 07:06] LABS: Basophils # (auto) 0.01 K/uL (0-0.2); Basophils % (auto) 0.2 %; Eosinophils # (auto) 0.02 K/uL (0-0.5); Eosinophils % (auto) 0.4 %; Hematocrit (blood only) 45.4 % (42-52); Hemoglobin 13.7 g/dL (14.0-18.0); Immature Granulocytes # (auto) 0.02 K/uL (0.00-0.02); Immature Granulocytes % (auto) 0.4 %; Lymphocytes # (auto) 0.41 K/uL (1.2-3.4); Lymphocytes % (auto) 7.4 %; Mean Corpuscular Hemoglobin 28.1 pg (25-34); Mean Corpuscular Hgb Conc 30.2 g/dL (32-36); Mean Corpuscular Volume 93.2 fL (80-100); Mean Platelet Volume 11.4 fL (7.4-10.4); Monocytes # (auto) 0.13 K/uL (0.11-0.59); Monocytes % (auto) 2.3 %; Neutrophils # (auto) 4.97 K/uL (1.4-6.5); Neutrophils % (auto) 89.3 %; Platelet Count 205 K/uL (130-400); RDW Coefficient of Variation 16.4 % (11.5-14.5); RDW Standard Deviation 55.9 fL (36.4-46.3); Red Blood Count 4.87 M/uL (4.7-6.1); White Blood Count 5.56 K/uL (4.8-10.8)
[2020-06-13 07:33] LABS: BUN Creatinine Ratio 23.7 (10-20); Calcium 8.9 mg/dl (8.5-10.1); Creatinine Clr Calc Pharmacy 44.9 ml/min; Est GFR (African American) 45.1; Est GFR (Non-African American) 38.9; Potassium 5.4 mmol/L (3.5-5.1)
[2020-06-13] MEDS: methylPREDNISolone 40 MG in SYRINGE 0 ML IV SCH ×2 (08:14→20:11)
[2020-06-13] MEDS: UMECLIDINIUM/VILANTEROL 62.5/25MCG 7 PUFFS/INHALER INH SCH (08:15)
[2020-06-13] MEDS: POLYETHYLENE (MIRALAX) 17 GM PACK PO SCH (08:15)
[2020-06-13] MEDS: FLUTICASONE FUROATE 100MCG 14 PUFFS/INHALER INH SCH (08:15)
[2020-06-13] MEDS: INSULIN GLARGINE SOLOSTAR 100 UNITS/ML 3 ML PEN SC SCH ×2 (08:17→20:09)
[2020-06-13] MEDS: INSULIN ASPART 100 UNITS/ML 3 ML PEN SC SCH ×4 (08:19→20:10)
[2020-06-13] MEDS: oxyCODONE/ACETAMINOPHEN 5mg/325mg TAB PO PRN (08:35)
[2020-06-13 09:43] LABS: Estimated Average Glucose 166 mg/dl; Hemoglobin A1C 7.4 % (4.5-5.6)
--- NOTE | 2020-06-13 15:23 | Hospitalist Progress Note ---
Date of Service June 13, 2020 Assessment & Plan (1) Acute respiratory failure with hypoxia: Aim O2 sats > 94%. See below for differential. most likely combination of COPD exacerbation and acute heart failure, will need echo (2) Shortness of breath: Chronically short of breath as per [facility] discharge summary in May 2019, however acutely much worse in the last 2 days prior to admission ?secondary diastolic heart failure +/- aortic stenosis +/- asthma/COPD exacerbation +/- obesity hypoventilation +/- RICA. No WBC and history not suggestive of PNA, although may need to be considered if not improving. Will avoid CT for PE given current renal function but get US venous doppler to assess for DVT - DOPPLER NEGATIVE FOR DVT BILATERALLY breathing is a little better, continue solu medrol, nebulizers, add Lasix 40mg IV daily starting this afternoon (3) Asthma exacerbation: No prior PFTs available however noted on discharge summary and [facility] notes that he was diagnosed with obstructive lung disease. continue IV solu-medrol 40mg BID and JOY duonebs lungs clear, no wheezing (4) Diastolic heart failure: Appears to be mainly right sided and prior diagnosis of pulmonary hypertension although unclear whether this is primary or secondary. acute on chronic heart failure with preserved EF significant edema in legs bilaterally, clearly hypervolemic will give Lasix 40mg IV today and tomorrow morning, monitor response Low Na diet, Fluid restrict 1500ml Measure I&Os Daily weights (5) Pulmonary hypertension: Likely (6) Aortic valve stenosis: No murmur on exam although very quiet heart sounds, no prior echo available. Patient does not wish to have TTE at current time as would not exchange architect. (7) Edema of both lower legs: As above regarding diastolic heart failure. US venous doppler b/l to rule out DVT - NEGATIVE (8) Neuroendocrine tumor of pancreas: Recently on Lanreotide injections. Per Dr Mcintosh's (PCP notes) patient wanting more comfort measures although this is not suggested in his heme/onc notes the patient mentions wanting more of a comfort approach today but when asked about getting CT scans if needed to work up his breathing he is on board with that. mild abdominal pain today (9) Constipation: Start MiraLAX daily. Monitor BM. Possibly contributing towards abdominal distension and dyspnea. 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 Repeat with AM labs. T2DM diet. Hold glimepiride during inpatient stay. Switch U-300 33 units HS to Lantus 20 units BID with Novolog sliding scale for correction and carb coverage. (11) Right bundle branch block: Chronic per prior notes (12) DVT prophylaxis: Heparin 7500 units SQ Q8H (increased dosing due to weight). Close monitoring of Hgb given prior GI bleed and steroid use as above. Admission and Anticipated Discharge Date Admission Date: June 12, 2020 Subjective patient states that his breathing is "not as bad as yesterday" he says he has a mild cough, non-productive, no fever he has significant edema in his legs bilaterally, will give Lasix IV reviewed labs, Cr is stable at 1.6, K is up at 5.4 but improved from admission value of 5.7, extra Lasix will help patient's appetite is okay, no nausea, no diarrhea reviewed chart from admission Review of Systems Review of Systems: All systems reviewed & are unremarkable except as noted in Subjective Physical Exam Constitutional: well developed, + obese and + disheveled; no acute distress Neck: trachea midline, no thyromegaly + thick neck Respiratory: normal respiratory effort and + cough; no respiratory distress Auscultation: + diminished lung sounds (bases); no crackles, no rales and no wheezes Cardiovascular: Rate/Rhythm: regular rate and regular rhythm Heart Sounds: normal S1 and normal S2; no murmur Vessels: no JVD Extremities: normal capillary refill and + edema (pitting edema to knees bilaterally) Gastrointestinal (Abdomen): normal bowel sounds, soft, nontender, no hepatosplenomegaly Musculoskeletal: no cyanosis or clubbing, extremities motor strength 5/5 Neurologic: patellar DTR's 2+ bilat, sensation intact and PERRL, EOMI, accommodation nl, no face palsy, no dysarthria Psychiatric: A+Ox3, euthymic affect Results & Data Results & Data ([facility]) Vital Signs (Past 12 Hours) Vital Signs Temp Pulse Pulse Resp BP Pulse Ox 06/13/20 11:33 36.8 C 89 20 100/65 94 06/13/20 11:25 89 16 94 06/13/20 08:00 83 06/13/20 07:39 36.5 C 85 16 111/69 90 06/13/20 07:04 84 16 94 06/13/20 04:33 36.3 C L 78 22 113/72 95 Laboratory Results Laboratory Results - last 24 hr 06/12/20 06/12/20 06/12/20 14:40 14:40 20:35 WBC RBC Hgb Hct MCV MCH MCHC RDW Std Deviation RDW Coeff of Wale Plt Count MPV Immature Gran % (Auto) Neut % (Auto) Lymph % (Auto) Stanton % (Auto) Eos % (Auto) Baso % (Auto) Neut # (Auto) Lymph # (Auto) Stanton # (Auto) Eos # (Auto) Baso # (Auto) Immature Gran # (Auto) PT 12.8 H INR 1.2 H APTT 30.1 PTT Ratio 1.1 Sodium 139 Potassium 5.7 H Chloride 107 Carbon Dioxide 32 Anion Gap 0 L BUN 40 H Creatinine 1.71 H Est Cr Clr Drug Dosing 45.9 Est GFR ( Amer) 43.5 Est GFR (Non-Af Amer) 37.5 BUN/Creatinine Ratio 23.3 H Glucose 120 H POC Glucose 82 Estimat Average Glucose Hemoglobin A1c Calcium 9.3 Total Bilirubin 1.6 H AST 42 H ALT 30 Alkaline Phosphatase 111 Troponin I 0.067 H* Total Protein 8.0 Albumin 3.8 Globulin 4.2 H Albumin/Globulin Ratio 0.9 Specimen Hemolysis 06/13/20 06/13/20 06/13/20 06:13 06:13 06:13 WBC 5.56 RBC 4.87 Hgb 13.7 L Hct 45.4 MCV 93.2 MCH 28.1 MCHC 30.2 L RDW Std Deviation 55.9 H RDW Coeff of Wale 16.4 H Plt Count 205 MPV 11.4 H Immature Gran % (Auto) 0.4 Neut % (Auto) 89.3 Lymph % (Auto) 7.4 Stanton % (Auto) 2.3 Eos % (Auto) 0.4 Baso % (Auto) 0.2 Neut # (Auto) 4.97 Lymph # (Auto) 0.41 L Stanton # (Auto) 0.13 Eos # (Auto) 0.02 Baso # (Auto) 0.01 Immature Gran # (Auto) 0.02 PT INR APTT PTT Ratio Sodium 142 Potassium 5.4 H Chloride 106 Carbon Dioxide 35 H Anion Gap 1.0 L BUN 39 H Creatinine 1.66 H Est Cr Clr Drug Dosing 44.9 Est GFR ( Amer) 45.1 Est GFR (Non-Af Amer) 38.9 BUN/Creatinine Ratio 23.7 H Glucose 79 POC Glucose Estimat Average Glucose 166 Hemoglobin A1c 7.4 H Calcium 8.9 Total Bilirubin AST ALT Alkaline Phosphatase Troponin I Total Protein Albumin Globulin Albumin/Globulin Ratio Specimen Hemolysis 06/13/20 06/13/20 07:27 11:38 WBC RBC Hgb Hct MCV MCH MCHC RDW Std Deviation RDW Coeff of Wale Plt Count MPV Immature Gran % (Auto) Neut % (Auto) Lymph % (Auto) Stanton % (Auto) Eos % (Auto) Baso % (Auto) Neut # (Auto) Lymph # (Auto) Stanton # (Auto) Eos # (Auto) Baso # (Auto) Immature Gran # (Auto) PT INR APTT PTT Ratio Sodium Potassium Chloride Carbon Dioxide Anion Gap BUN Creatinine Est Cr Clr Drug Dosing Est GFR ( Amer) Est GFR (Non-Af Amer) BUN/Creatinine Ratio Glucose POC Glucose 89 155 H Estimat Average Glucose Hemoglobin A1c Calcium Total Bilirubin AST ALT Alkaline Phosphatase Troponin I Total Protein Albumin Globulin Albumin/Globulin Ratio Specimen Hemolysis Medications Administered Current Inpatient Medications Acetaminophen (Acetaminophen 325 Mg Tab) 650 mg PO Q4H PRN PRN Reason: Pain or Fever Stop: 07/12/20 20:09 Albuterol (Albut/Ipratrop 3mg/0.5mg Neb 3 Ml Vial) 3 ml NEB QIDR JOY Stop: 07/13/20 06:59 Last Admin: 06/13/20 15:20 Dose: 3 ml Documented by: Dextrose (Dextrose 50% 50 Ml Syringe) 25 - 50 ml IV UD PRN; Protocol PRN Reason: Hypoglycemia Protocol Stop: 07/12/20 20:09 Fluticasone Furoate (Fluticasone Furoate 100mcg 14 Puffs/Inhaler) 1 puffs INH DAILY JOY Stop: 07/13/20 08:59 Last Admin: 06/13/20 08:15 Dose: 1 puffs Documented by: Glucagon (Glucagon For Inj 1 Mg Vial) 1 mg SQ UD PRN; Protocol PRN Reason: Hypoglycemia Protocol Stop: 07/12/20 20:09 Glucose (Glucose 10 Tabs/Tube) 4 - 8 tabs PO UD PRN; Protocol PRN Reason: Hypoglycemia Protocol Stop: 07/12/20 20:09 Glucose (Glucose 40% Gel 15 Gm Tube) 15 - 30 gm PO UD PRN; Protocol PRN Reason: Hypoglycemia Protocol Stop: 07/12/20 20:09 Heparin Sodium (Porcine) (Heparin Sod 5,000 Unit/0.5 Ml Vial) 7,500 units SQ Q8 JOY Stop: 07/12/20 21:59 Last Admin: 06/13/20 13:03 Dose: 7,500 units Documented by: Methylprednisolone 40 mg/ (Syringe) 0.64 mls @ 1.5 mls/min IV BID JOY Stop: 07/13/20 08:59 Last Admin: 06/13/20 08:14 Dose: 1.5 mls/min Documented by: Furosemide 40 mg/ Syringe 4 mls @ 4 mls/min IV ONE ONE Stop: 06/13/20 15:23 Furosemide 40 mg/ Syringe 4 mls @ 4 mls/min IV QAM JOY Stop: 07/14/20 08:59 Insulin Aspart (Insulin Aspart 100 Units/Ml 3 Ml Pen) 0 units SC ACHS JOY Stop: 07/12/20 20:59 Last Admin: 06/13/20 13:02 Dose: 10 units Documented by: Insulin Glargine (Insulin Glargine Solostar 100 Units/Ml 3 Ml Pen) 20 units SC BID JOY Stop: 07/12/20 20:59 Last Admin: 06/13/20 08:17 Dose: 20 units Documented by: Miscellaneous (Carbohydrates For Hypoglycemia ) 15 - 30 gm PO UD PRN PRN Reason: Hypoglycemia Protocol Stop: 07/12/20 20:09 Oxycodone/Acetaminophen (Oxycodone/Acetaminophen 5mg/325mg Tab) 0.5 tab PO Q8H PRN PRN Reason: pain Stop: 06/26/20 20:24 Last Admin: 06/13/20 08:35 Dose: 0.5 tab Documented by: Polyethylene Glycol (Polyethylene (Miralax) 17 Gm Pack) 17 gm PO DAILY JOY Stop: 07/12/20 20:59 Last Admin: 06/13/20 08:15 Dose: 17 gm Documented by: Triamcinolone Acetonide (Triamcinolone Acet 0.1% Cr 15 Gm Tube) 1 appln TOP BID PRN PRN Reason: skin irritation Stop: 07/12/20 20:09 Umeclidinium/Vilanterol (Umeclidinium/Vilanterol 62.5/25mcg 7 Puffs/Inhaler) 1 puffs INH DAILY JOY; Protocol Stop: 07/13/20 08:59 Last Admin: 06/13/20 08:15 Dose: 1 puffs Documented by: PG Care Time/CCT Total # of Minutes Spent Total Time Spent with Patient: Total time spent is greater than 50% in coordination of care (as documented) at patient's floor/unit and/or counseling patient: Coding Level of Care Code 26789 Subseq Hosp Care Lvl 3 Diagnoses Acute respiratory failure with hypoxia J96.01 Shortness of breath R06.02 Asthma exacerbation J45.901 Diastolic heart failure I50.30 Pulmonary hypertension I27.20 Aortic valve stenosis I35.0 Edema of both lower legs R60.0 Neuroendocrine tumor of pancreas D3A.8 Constipation K59.00 Diabetes mellitus with neurological manifestations, uncontrolled E11.49; E11.65 Right bundle branch block I45.10 DVT prophylaxis Z29.9
[2020-06-13] MEDS ORDERED: FUROSEMIDE 40 MG in SYRINGE 0 ML IV ONE (15:30)
[2020-06-14] MEDS: oxyCODONE/ACETAMINOPHEN 5mg/325mg TAB PO PRN (04:17)
[2020-06-14] MEDS: HEPARIN SOD 5,000 UNIT/0.5 ML VIAL SQ SCH ×3 (05:44→22:45)
[2020-06-14 06:48] LABS: Hemoglobin 13.5 g/dL (14.0-18.0); Mean Corpuscular Hemoglobin 28.7 pg (25-34); Mean Corpuscular Hgb Conc 31.4 g/dL (32-36); Mean Corpuscular Volume 91.3 fL (80-100); Mean Platelet Volume 11.2 fL (7.4-10.4); Platelet Count 245 K/uL (130-400); RDW Coefficient of Variation 16.2 % (11.5-14.5); RDW Standard Deviation 53.8 fL (36.4-46.3); Red Blood Count 4.71 M/uL (4.7-6.1); White Blood Count 13.57 K/uL (4.8-10.8)
[2020-06-14] MEDS: ALBUT/IPRATROP 3MG/0.5MG NEB 3 ML VIAL NEB SCH ×4 (07:15→19:36)
[2020-06-14 07:23] LABS: BUN Creatinine Ratio 28.4 (10-20); Creatinine Clr Calc Pharmacy 42.4 ml/min; Est GFR (African American) 41.7; Magnesium 2.1 mg/dl (1.8-2.4); Potassium 4.3 mmol/L (3.5-5.1)
[2020-06-14] MEDS: CARBOHYDRATES FOR HYPOGLYCEMIA PO PRN (07:30)
[2020-06-14] MEDS ORDERED: BUMETANIDE 2 MG in SYRINGE 0 ML IV ONE (08:00)
[2020-06-14] MEDS ORDERED: FUROSEMIDE 40 MG in SYRINGE 0 ML IV SCH (09:00)
[2020-06-14] MEDS: INSULIN ASPART 100 UNITS/ML 3 ML PEN SC SCH ×4 (09:22→20:52)
[2020-06-14] MEDS: FLUTICASONE FUROATE 100MCG 14 PUFFS/INHALER INH SCH (09:24)
[2020-06-14] MEDS: UMECLIDINIUM/VILANTEROL 62.5/25MCG 7 PUFFS/INHALER INH SCH (09:25)
[2020-06-14] MEDS: POLYETHYLENE (MIRALAX) 17 GM PACK PO SCH (09:26)
[2020-06-14] MEDS: methylPREDNISolone 40 MG in SYRINGE 0 ML IV SCH ×2 (09:26→20:53)
[2020-06-14] MEDS: INSULIN GLARGINE SOLOSTAR 100 UNITS/ML 3 ML PEN SC SCH (12:12)
[2020-06-14] MEDS ORDERED: COUGH DROP (SUGAR FREE) LOZ 24 LOZ/1 BOX BUCCAL STA (21:42)
--- NOTE | 2020-06-14 22:17 | Hospitalist Progress Note ---
Date of Service June 14, 2020 Assessment & Plan (1) Acute respiratory failure with hypoxia: Aim O2 sats > 94%. See below for differential. most likely combination of COPD exacerbation and acute diastolic heart failure he is on oxygen chronically, he says his breathing is always poor he is on 5L today, no distress continue to diurese with Bumex (2) Shortness of breath: Chronically short of breath as per [facility] [place], however acutely much worse in the last 2 days prior to admission due to acute on chronic diastolic heart failure, no wheezing, doubt COPD exacerbation, stop steroids Will avoid CT for PE given current renal function but get US venous doppler to assess for DVT - DOPPLER NEGATIVE FOR DVT BILATERALLY breathing is a little better, stop Solu Medrol, use Bumex 2mg IV daily for fluid removal (3) Asthma exacerbation: No prior PFTs available however noted on discharge summary and [facility] [place] that he was diagnosed with obstructive lung disease. hold steroids for now lungs clear, no wheezing (4) Diastolic heart failure: Appears to be mainly right sided and prior diagnosis of pulmonary hypertension although unclear whether this is primary or secondary. acute on chronic heart failure with preserved EF significant edema in legs bilaterally, clearly hypervolemic, pitting to the knees poor response to Lasix will change to Bumex 2mg IV this morning, better diuresis per patient Low Na diet, Fluid restrict 1500ml Measure I&Os Daily weights (5) Pulmonary hypertension: Likely (6) Aortic valve stenosis: No murmur on exam although very quiet heart sounds, no prior echo available. 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 (7) Edema of both lower legs: As above regarding diastolic heart failure. US venous doppler b/l to rule out DVT - NEGATIVE (8) Neuroendocrine tumor of pancreas: Recently on Lanreotide injections. Per Dr Mcintosh's (PCP notes) patient wanting more comfort measures although this is not suggested in his heme/onc notes the patient mentions wanting more of a comfort approach today but when asked about getting CT scans if needed to work up his breathing he is on board with that. mild abdominal pain today but this is ongoing issue he confirms that he has been consider hospice, no formal decision made yet (9) Constipation: Start MiraLAX daily. Monitor BM. Possibly contributing towards abdominal distension and dyspnea. 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 Repeat with AM labs. T2DM diet. Hold glimepiride during inpatient stay. hypoglycemic today, hold Lantus 20 BID (11) Right bundle branch block: Chronic per prior notes (12) DVT prophylaxis: Heparin 7500 units SQ Q8H (increased dosing due to weight). Close monitoring of Hgb given prior GI bleed and steroid use as above. Admission and Anticipated Discharge Date Admission Date: June 12, 2020 Subjective patient says his breathing is the same he is making a lot of urine with the Bumex, definitely more than normal for him with the Lasix his abdominal pain is stable, appetite is okay, no nausea, no diarrhea reviewed labs, Cr is 1.7, K down to 4.3 from 5.4 Review of Systems Review of Systems: All systems reviewed & are unremarkable except as noted in Subjective Constitutional: + fatigue and + weakness; no fever, no chills and no sweats Respiratory: + cough, + dyspnea and + dyspnea on exertion Cardiovascular: + edema (to knees); no chest pain Physical Exam Constitutional: well developed, + obese and + disheveled; no acute distress Neck: trachea midline, no thyromegaly + thick neck Respiratory: normal respiratory effort and + cough; no respiratory distress Auscultation: + diminished lung sounds (bases); no crackles, no rales and no wheezes Cardiovascular: Rate/Rhythm: regular rate and regular rhythm Heart Sounds: normal S1 and normal S2; no murmur Vessels: no JVD Extremities: normal capillary refill and + edema (pitting edema to knees bilaterally) Gastrointestinal (Abdomen): normal bowel sounds, soft, nontender, no hepatosplenomegaly Musculoskeletal: no cyanosis or clubbing, extremities motor strength 5/5 Neurologic: patellar DTR's 2+ bilat, sensation intact and PERRL, EOMI, a ccommodation nl, no face palsy, no dysarthria Psychiatric: A+Ox3, euthymic affect Results & Data Results & Data ([facility]) Vital Signs (Past 12 Hours) Vital Signs Temp Pulse Pulse Resp BP BP Pulse Ox 06/14/20 19:44 36.5 C 93 H 18 95/66 L 93 06/14/20 19:38 93 H 18 93 06/14/20 16:42 80 06/14/20 15:25 91 H 18 94 10/29/20 11:39 36.6 C 69 18 103/57 L 95 06/14/20 11:30 36.4 C L 91 H 18 112/66 96 06/14/20 11:05 76 18 90 Laboratory Results Laboratory Results - last 24 hr 06/14/20 06/14/20 06/14/20 06:15 06:15 07:27 WBC 13.57 H RBC 4.71 Hgb 13.5 L Hct 43.0 MCV 91.3 MCH 28.7 MCHC 31.4 L RDW Std Deviation 53.8 H RDW Coeff of Wale 16.2 H Plt Count 245 MPV 11.2 H Sodium 139 Potassium 4.3 D Chloride 102 Carbon Dioxide 31 Anion Gap 5.0 BUN 50 H Creatinine 1.77 H Est Cr Clr Drug Dosing 42.4 Est GFR ( Amer) 41.7 Est GFR (Non-Af Amer) 36.0 BUN/Creatinine Ratio 28.4 H Glucose 45 L* POC Glucose 54 L* Calcium 9.0 Magnesium 2.1 06/14/20 06/14/20 06/14/20 07:49 11:46 17:05 WBC RBC Hgb Hct MCV MCH MCHC RDW Std Deviation RDW Coeff of Wale Plt Count MPV Sodium Potassium Chloride Carbon Dioxide Anion Gap BUN Creatinine Est Cr Clr Drug Dosing Est GFR ( Amer) Est GFR (Non-Af Amer) BUN/Creatinine Ratio Glucose POC Glucose 72 123 H 127 H Calcium Magnesium 06/14/20 20:17 WBC RBC Hgb Hct MCV MCH MCHC RDW Std Deviation RDW Coeff of Wale Plt Count MPV Sodium Potassium Chloride Carbon Dioxide Anion Gap BUN Creatinine Est Cr Clr Drug Dosing Est GFR ( Amer) Est GFR (Non-Af Amer) BUN/Creatinine Ratio Glucose POC Glucose 154 H Calcium Magnesium Medications Administered Current Inpatient Medications Acetaminophen (Acetaminophen 325 Mg Tab) 650 mg PO Q4H PRN PRN Reason: Pain or Fever Stop: 07/12/20 20:09 Albuterol (Albut/Ipratrop 3mg/0.5mg Neb 3 Ml Vial) 3 ml NEB QIDR JOY Stop: 07/13/20 06:59 Last Admin: 06/14/20 19:36 Dose: 3 ml Documented by: Dextrose (Dextrose 50% 50 Ml Syringe) 25 - 50 ml IV UD PRN; Protocol PRN Reason: Hypoglycemia Protocol Stop: 07/12/20 20:09 Fluticasone Furoate (Fluticasone Furoate 100mcg 14 Puffs/Inhaler) 1 puffs INH DAILY JOY Stop: 07/13/20 08:59 Last Admin: 06/14/20 09:24 Dose: 1 puffs Documented by: Glucagon (Glucagon For Inj 1 Mg Vial) 1 mg SQ UD PRN; Protocol PRN Reason: Hypoglycemia Protocol Stop: 07/12/20 20:09 Glucose (Glucose 10 Tabs/Tube) 4 - 8 tabs PO UD PRN; Protocol PRN Reason: Hypoglycemia Protocol Stop: 07/12/20 20:09 Glucose (Glucose 40% Gel 15 Gm Tube) 15 - 30 gm PO UD PRN; Protocol PRN Reason: Hypoglycemia Protocol Stop: 07/12/20 20:09 Heparin Sodium (Porcine) (Heparin Sod 5,000 Unit/0.5 Ml Vial) 7,500 units SQ Q8 JOY Stop: 07/12/20 21:59 Last Admin: 06/14/20 15:10 Dose: 7,500 units Documented by: Methylprednisolone 40 mg/ (Syringe) 0.64 mls @ 1.5 mls/min IV BID JOY Stop: 07/13/20 08:59 Last Admin: 06/14/20 20:53 Dose: 1.5 mls/min Documented by: Insulin Aspart (Insulin Aspart 100 Units/Ml 3 Ml Pen) 0 units SC ACHS JOY Stop: 07/12/20 20:59 Last Admin: 06/14/20 20:52 Dose: 1 units Documented by: Insulin Glargine (Insulin Glargine Solostar 100 Units/Ml 3 Ml Pen) 20 units SC BID JOY Stop: 07/12/20 20:59 Last Admin: 06/14/20 12:12 Dose: Not Given Documented by: Miscellaneous (Carbohydrates For Hypoglycemia ) 15 - 30 gm PO UD PRN PRN Reason: Hypoglycemia Protocol Stop: 07/12/20 20:09 Last Admin: 06/14/20 07:30 Dose: 15 gm Documented by: Oxycodone/Acetaminophen (Oxycodone/Acetaminophen 5mg/325mg Tab) 0.5 tab PO Q8H PRN PRN Reason: pain Stop: 06/26/20 20:24 Last Admin: 06/14/20 04:17 Dose: 0.5 tab Documented by: Polyethylene Glycol (Polyethylene (Miralax) 17 Gm Pack) 17 gm PO DAILY JOY Stop: 07/12/20 20:59 Last Admin: 06/14/20 09:26 Dose: 17 gm Documented by: Triamcinolone Acetonide (Triamcinolone Acet 0.1% Cr 15 Gm Tube) 1 appln TOP BID PRN PRN Reason: skin irritation Stop: 07/12/20 20:09 Umeclidinium/Vilanterol (Umeclidinium/Vilanterol 62.5/25mcg 7 Puffs/Inhaler) 1 puffs INH DAILY JOY; Protocol Stop: 07/13/20 08:59 Last Admin: 06/14/20 09:25 Dose: 1 puffs Documented by: PG Care Time/CCT Total # of Minutes Spent Total Time Spent with Patient: Total time spent is greater than 50% in coordination of care (as documented) at patient's floor/unit and/or counseling patient: Coding Level of Care Code 96319 Subseq Hosp Care Lvl 3 Diagnoses Acute respiratory failure with hypoxia J96.01 Shortness of breath R06.02 Asthma exacerbation J45.901 Diastolic heart failure I50.30 Pulmonary hypertension I27.20 Aortic valve stenosis I35.0 Edema of both lower legs R60.0 Neuroendocrine tumor of pancreas D3A.8 Constipation K59.00 Diabetes mellitus with neurological manifestations, uncontrolled E11.49; E11.65 Right bundle branch block I45.10 DVT prophylaxis Z29.9
[2020-06-15] MEDS: HEPARIN SOD 5,000 UNIT/0.5 ML VIAL SQ SCH ×3 (06:18→23:48)
[2020-06-15 06:41] LABS: Hematocrit (blood only) 43.9 % (42-52); Hemoglobin 13.7 g/dL (14.0-18.0); Mean Corpuscular Hemoglobin 28.1 pg (25-34); Mean Corpuscular Hgb Conc 31.2 g/dL (32-36); Mean Corpuscular Volume 90.1 fL (80-100); Mean Platelet Volume 11.6 fL (7.4-10.4); Platelet Count 235 K/uL (130-400); RDW Coefficient of Variation 16.2 % (11.5-14.5); RDW Standard Deviation 53.2 fL (36.4-46.3); Red Blood Count 4.87 M/uL (4.7-6.1); White Blood Count 9.95 K/uL (4.8-10.8)
[2020-06-15 07:23] LABS: BUN Creatinine Ratio 29.7 (10-20); Creatinine Clr Calc Pharmacy 37.4 ml/min
[2020-06-15] MEDS: ALBUT/IPRATROP 3MG/0.5MG NEB 3 ML VIAL NEB SCH (07:46)
[2020-06-15] MEDS: UMECLIDINIUM/VILANTEROL 62.5/25MCG 7 PUFFS/INHALER INH SCH (07:58)
[2020-06-15] MEDS: FLUTICASONE FUROATE 100MCG 14 PUFFS/INHALER INH SCH (07:58)
[2020-06-15] MEDS: POLYETHYLENE (MIRALAX) 17 GM PACK PO SCH (07:58)
[2020-06-15] MEDS: ACETAMINOPHEN 325 MG TAB PO PRN ×2 (08:03→20:04)
[2020-06-15] MEDS: INSULIN ASPART 100 UNITS/ML 3 ML PEN SC SCH ×4 (08:21→23:48)
[2020-06-15] MEDS ORDERED: ALBUT/IPRATROP 3MG/0.5MG NEB 3 ML VIAL NEB PRN (08:50)
[2020-06-15] MEDS ORDERED: BUMETANIDE 2 MG in SYRINGE 0 ML IV SCH (09:00)
--- NOTE | 2020-06-15 10:50 | Hospitalist Progress Note ---
Date of Service June 15, 2020 Assessment & Plan (1) Acute respiratory failure with hypoxia: Aim O2 sats > 94%. See below for differential. most likely acute diastolic heart failure he is on oxygen chronically, he says his breathing is always poor he is on 5L today, no distress, has dyspnea on exertion but he says this is normal continue to diurese with Bumex (2) Shortness of breath: Chronically short of breath as per [facility] discharge summary in May 2019, however acutely much worse in the last 2 days prior to admission due to acute on chronic diastolic heart failure, no wheezing, doubt COPD exacerbation, stop steroids Will avoid CT for PE given current renal function but get US venous doppler to assess for DVT - DOPPLER NEGATIVE FOR DVT BILATERALLY breathing is a little better, stop Solu Medrol, use Bumex 2mg IV daily for fluid removal, very slow to diurese fluid restrict to 1200mL / day (3) Asthma exacerbation: No prior PFTs available however noted on discharge summary and [facility] notes that he was diagnosed with obstructive lung disease. hold steroids for now lungs clear, no wheezing (4) Diastolic heart failure: Appears to be mainly right sided and prior diagnosis of pulmonary hypertension although unclear whether this is primary or secondary. acute on chronic heart failure with preserved EF significant edema in legs bilaterally, clearly hypervolemic, pitting to the knees poor response to Lasix changed to Bumex 2mg IV on 06/13 Low Na diet, Fluid restrict 1200ml Measure I&Os Daily weights Cr is up to 2.0, will check in morning prior to Bumex (5) Pulmonary hypertension: Likely (6) Aortic valve stenosis: No murmur on exam although very quiet heart sounds, no prior echo available. 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 (7) Edema of both lower legs: As above regarding diastolic heart failure. US venous doppler b/l to rule out DVT - NEGATIVE (8) Neuroendocrine tumor of pancreas: Recently on Lanreotide injections. Per Dr Mcintosh's (PCP notes) patient wanting more comfort measures although this is not suggested in his heme/onc notes the patient mentions wanting more of a comfort approach today but when asked about getting CT scans if needed to work up his breathing he is on board with that. mild abdominal pain today but this is ongoing issue he confirms that he has been considering hospice, no formal decision made yet (9) Constipation: Start MiraLAX daily. 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 Repeat with AM labs. T2DM diet. Hold glimepiride during inpatient stay. hypoglycemic yesterday, hold Lantus 20 BID (11) Right bundle branch block: Chronic per prior notes (12) DVT prophylaxis: Heparin 7500 units SQ Q8H (increased dosing due to weight). Close monitoring of Hgb given prior GI bleed and steroid use as above. Admission and Anticipated Discharge Date Admission Date: June 12, 2020 Subjective patient is breathing about the same, he is making more urine with Bumex 2mg IV he still has edema in legs, not much of a difference his appetite is normal, no wheezing spoke with respiratory therapy, will make nebulizers PRN reviewed labs, Cr is rising to 2.0 from 1.7, BUN up to 59, K is 4.5 will see what BMP is like in the morning Review of Systems Review of Systems: All systems reviewed & are unremarkable except as noted in Subjective Constitutional: + fatigue and + weakness Respiratory: + dyspnea on exertion; no cough and no dyspnea Cardiovascular: + edema (pitting to knees bilaterally); no chest pain Physical Exam Constitutional: well developed, + obese and + disheveled; no acute distress Neck: trachea midline, no thyromegaly + thick neck Respiratory: normal respiratory effort and + cough; no respiratory distress Auscultation: + diminished lung sounds (bases); no crackles, no rales and no wheezes Cardiovascular: Rate/Rhythm: regular rate and regular rhythm Heart Sounds: normal S1 and normal S2; no murmur Vessels: no JVD Extremities: normal capillary refill and + edema (pitting edema to knees bilaterally) Gastrointestinal (Abdomen): normal bowel sounds, soft, nontender, no hepatosplenomegaly Musculoskeletal: no cyanosis or clubbing, extremities motor strength 5/5 Neurologic: patellar DTR's 2+ bilat, sensation intact and PERRL, EOMI, accommodation nl, no face palsy, no dysarthria Psychiatric: A+Ox3, euthymic affect Results & Data Results & Data ([facility]) Vital Signs (Past 12 Hours) Vital Signs Temp Pulse Pulse Resp BP BP Pulse Ox 06/15/20 07:46 87 18 97 10/30/20 07:27 87 06/15/20 07:00 36.4 C L 87 18 103/63 94 06/15/20 04:00 36.4 C L 91 H 18 104/67 93 06/15/20 00:19 95 H 06/14/20 23:00 36.7 C 95 H 18 128/76 93 Laboratory Results Laboratory Results - last 24 hr 06/14/20 06/14/20 06/14/20 11:46 17:05 20:17 WBC RBC Hgb Hct MCV MCH MCHC RDW Std Deviation RDW Coeff of Wale Plt Count MPV Sodium Potassium Chloride Carbon Dioxide Anion Gap BUN Creatinine Est Cr Clr Drug Dosing Est GFR ( Amer) Est GFR (Non-Af Amer) BUN/Creatinine Ratio Glucose POC Glucose 123 H 127 H 154 H Calcium 06/15/20 06/15/20 06/15/20 06:21 06:21 07:25 WBC 9.95 RBC 4.87 Hgb 13.7 L Hct 43.9 MCV 90.1 MCH 28.1 MCHC 31.2 L RDW Std Deviation 53.2 H RDW Coeff of Wale 16.2 H Plt Count 235 MPV 11.6 H Sodium 138 Potassium 4.5 Chloride 101 Carbon Dioxide 32 Anion Gap 5.0 BUN 59 H Creatinine 2.00 H Est Cr Clr Drug Dosing 37.4 Est GFR ( Amer) 36.0 Est GFR (Non-Af Amer) 31.0 BUN/Creatinine Ratio 29.7 H Glucose 174 H POC Glucose Calcium 9.0 06/15/20 07:44 WBC RBC Hgb Hct MCV MCH MCHC RDW Std Deviation RDW Coeff of Wale Plt Count MPV Sodium Potassium Chloride Carbon Dioxide Anion Gap BUN Creatinine Est Cr Clr Drug Dosing Est GFR ( Amer) Est GFR (Non-Af Amer) BUN/Creatinine Ratio Glucose POC Glucose 193 H Calcium Medications Administered Current Inpatient Medications Acetaminophen (Acetaminophen 325 Mg Tab) 650 mg PO Q4H PRN PRN Reason: Pain or Fever Stop: 07/12/20 20:09 Last Admin: 06/15/20 08:03 Dose: 650 mg Documented by: Albuterol (Albut/Ipratrop 3mg/0.5mg Neb 3 Ml Vial) 3 ml NEB Q4R PRN PRN Reason: Shortness Of Breath Or Wheezing Stop: 07/15/20 10:59 Dextrose (Dextrose 50% 50 Ml Syringe) 25 - 50 ml IV UD PRN; Protocol PRN Reason: Hypoglycemia Protocol Stop: 07/12/20 20:09 Fluticasone Furoate (Fluticasone Furoate 100mcg 14 Puffs/Inhaler) 1 puffs INH DAILY JOY Stop: 07/13/20 08:59 Last Admin: 06/15/20 07:58 Dose: 1 puffs Documented by: Glucagon (Glucagon For Inj 1 Mg Vial) 1 mg SQ UD PRN; Protocol PRN Reason: Hypoglycemia Protocol Stop: 07/12/20 20:09 Glucose (Glucose 10 Tabs/Tube) 4 - 8 tabs PO UD PRN; Protocol PRN Reason: Hypoglycemia Protocol Stop: 07/12/20 20:09 Glucose (Glucose 40% Gel 15 Gm Tube) 15 - 30 gm PO UD PRN; Protocol PRN Reason: Hypoglycemia Protocol Stop: 07/12/20 20:09 Heparin Sodium (Porcine) (Heparin Sod 5,000 Unit/0.5 Ml Vial) 7,500 units SQ Q8 JOY Stop: 07/12/20 21:59 Last Admin: 06/15/20 06:18 Dose: 7,500 units Documented by: Bumetanide 2 mg/ Syringe 8 mls @ 4 mls/min IV QAM JOY Stop: 07/15/20 08:59 Last Admin: 06/15/20 09:38 Dose: 4 mls/min Documented by: Insulin Aspart (Insulin Aspart 100 Units/Ml 3 Ml Pen) 0 units SC ACHS JOY Stop: 07/12/20 20:59 Last Admin: 06/15/20 08:21 Dose: 8 units Documented by: Insulin Glargine (Insulin Glargine Solostar 100 Units/Ml 3 Ml Pen) 20 units SC BID JOY Stop: 07/12/20 20:59 Last Admin: 06/14/20 12:12 Dose: Not Given Documented by: Miscellaneous (Carbohydrates For Hypoglycemia ) 15 - 30 gm PO UD PRN PRN Reason: Hypoglycemia Protocol Stop: 07/12/20 20:09 Last Admin: 06/14/20 07:30 Dose: 15 gm Documented by: Oxycodone/Acetaminophen (Oxycodone/Acetaminophen 5mg/325mg Tab) 0.5 tab PO Q8H PRN PRN Reason: pain Stop: 06/26/20 20:24 Last Admin: 06/14/20 04:17 Dose: 0.5 tab Documented by: Polyethylene Glycol (Polyethylene (Miralax) 17 Gm Pack) 17 gm PO DAILY JOY Stop: 07/12/20 20:59 Last Admin: 06/15/20 07:58 Dose: 17 gm Documented by: Triamcinolone Acetonide (Triamcinolone Acet 0.1% Cr 15 Gm Tube) 1 appln TOP BID PRN PRN Reason: skin irritation Stop: 07/12/20 20:09 Umeclidinium/Vilanterol (Umeclidinium/Vilanterol 62.5/25mcg 7 Puffs/Inhaler) 1 puffs INH DAILY JOY; Protocol Stop: 07/13/20 08:59 Last Admin: 06/15/20 07:58 Dose: 1 puffs Documented by: PG Care Time/CCT Total # of Minutes Spent Total Time Spent with Patient: Total time spent is greater than 50% in coordination of care (as documented) at patient's floor/unit and/or counseling patient: Coding Level of Care Code 87480 Subseq Hosp Care Lvl 2 Diagnoses Acute respiratory failure with hypoxia J96.01 Shortness of breath R06.02 Asthma exacerbation J45.901 Diastolic heart failure I50.30 Pulmonary hypertension I27.20 Aortic valve stenosis I35.0 Edema of both lower legs R60.0 Neuroendocrine tumor of pancreas D3A.8 Constipation K59.00 Diabetes mellitus with neurological manifestations, uncontrolled E11.49; E11.65 Right bundle branch block I45.10 DVT prophylaxis Z29.9
[2020-06-15] MEDS: CARBOHYDRATES FOR HYPOGLYCEMIA PO PRN (17:10)
[2020-06-16] MEDS: ACETAMINOPHEN 325 MG TAB PO PRN (00:25)
[2020-06-16] MEDS: HEPARIN SOD 5,000 UNIT/0.5 ML VIAL SQ SCH ×3 (05:50→22:19)
[2020-06-16 07:11] LABS: BUN Creatinine Ratio 31.9 (10-20); Creatinine Clr Calc Pharmacy 35.5 ml/min; Est GFR (African American) 33.7; Est GFR (Non-African American) 29.1
[2020-06-16] MEDS: CARBOHYDRATES FOR HYPOGLYCEMIA PO PRN (08:01)
[2020-06-16] MEDS: FLUTICASONE FUROATE 100MCG 14 PUFFS/INHALER INH SCH (08:02)
[2020-06-16] MEDS: POLYETHYLENE (MIRALAX) 17 GM PACK PO SCH (08:02)
[2020-06-16] MEDS: UMECLIDINIUM/VILANTEROL 62.5/25MCG 7 PUFFS/INHALER INH SCH (08:02)
[2020-06-16] MEDS: INSULIN ASPART 100 UNITS/ML 3 ML PEN SC SCH ×4 (08:50→22:19)
--- NOTE | 2020-06-16 16:34 | Hospitalist Progress Note ---
Date of Service June 16, 2020 Assessment & Plan (1) Acute respiratory failure with hypoxia: Aim O2 sats > 94%. See below for differential. most likely acute diastolic heart failure he is on oxygen chronically, he says his breathing is always poor he is on 4L today, no distress, has dyspnea on exertion but he says this is normal hold Bumex today due to Cr 2.1 he will need a two step prior to discharge, not normally on this much oxygen (2) Shortness of breath: Chronically short of breath as per [facility] discharge summary in May 2019, however acutely much worse in the last 2 days prior to admission due to acute on chronic diastolic heart failure, no wheezing, doubt COPD exacerbation, stop steroids Will avoid CT for PE given current renal function but get US venous doppler to assess for DVT - DOPPLER NEGATIVE FOR DVT BILATERALLY breathing is a little better, stop Solu Medrol, use Bumex 2mg IV daily for fluid removal, very slow to diurese fluid restrict to 1200mL / day (3) Asthma exacerbation: No prior PFTs available however noted on discharge summary and [facility] [place] notes that he was diagnosed with obstructive lung disease. hold steroids for now lungs clear, no wheezing (4) Diastolic heart failure: Appears to be mainly right sided and prior diagnosis of pulmonary hypertension although unclear whether this is primary or secondary. acute on chronic heart failure with preserved EF significant edema in legs bilaterally, clearly hypervolemic, pitting to the knees per his daughter, he does not take Lasix every day at home poor response to Lasix changed to Bumex 2mg IV on 06/13 Low Na diet, Fluid restrict 1200ml Measure I&Os Daily weights Cr is up to 2.11, hold Bumex today (5) Pulmonary hypertension: Likely suspect he has cor pulmonale causing the significant peripheral edema (6) Aortic valve stenosis: No murmur on exam although very quiet heart sounds, no prior echo available. Patient does not wish to have TTE at current time as would not traveler changer. (7) Edema of both lower legs: As above regarding diastolic heart failure and suspected right heart failure US venous doppler b/l to rule out DVT - NEGATIVE (8) Neuroendocrine tumor of pancreas: Recently on Lanreotide injections. Per Dr Mcintosh's (PCP notes) patient wanting more comfort measures although this is not suggested in his heme/onc notes the patient mentions wanting more of a comfort approach today but when asked about getting CT scans if needed to work up his breathing he is on board with that. mild abdominal pain today but this is ongoing issue he confirms that he has been considering hospice, no formal decision made yet (9) Constipation: Start MiraLAX daily. 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 Repeat with AM labs. T2DM diet. Hold glimepiride during inpatient stay. hypoglycemic episodes continue, castro continue to hold Lantus 20 BID (11) Right bundle branch block: Chronic per prior notes (12) DVT prophylaxis: Heparin 7500 units SQ Q8H (increased dosing due to weight). Close monitoring of Hgb given prior GI bleed and steroid use as above. Admission and Anticipated Discharge Date Admission Date: June 12, 2020 Subjective patient continues to be stable found out more information from his daughter today she said he does not follow with pulmonary, likely needs maintenance inhalers, he just uses albuterol he was never tested for oxygen? he just purchased to have at home? he was using 1L until he saw someone on TV with 4L so he thought he would turn up his oxygen and it made him feel better she said that his legs have been swollen for months, he only uses Lasix when he feels like it, not every day reviewed labs, Cr up to 2.1, BUN elevated, holding Bumex today, check BMP tomorrow he is eating well, making urine, moving his bowels no chest pain, has dyspnea on exertion that is normal for him Review of Systems Review of Systems: All systems reviewed & are unremarkable except as noted in Subjective Physical Exam Constitutional: well developed, + obese and + disheveled; no acute distress Neck: trachea midline, no thyromegaly + thick neck Respiratory: normal respiratory effort and + cough; no respiratory distress Auscultation: + diminished lung sounds (bases); no crackles, no rales and no wheezes Cardiovascular: Rate/Rhythm: regular rate and regular rhythm Heart Sounds: normal S1 and normal S2; no murmur Vessels: no JVD Extremities: normal capillary refill and + edema (pitting edema to knees bilaterally) Gastrointestinal (Abdomen): normal bowel sounds, soft, nontender, no hepatosplenomegaly Musculoskeletal: no cyanosis or clubbing, extremities motor strength 5/5 Neurologic: patellar DTR's 2+ bilat, sensation intact and PERRL, EOMI, accommodation nl, no face palsy, no dysarthria Psychiatric: A+Ox3, euthymic affect Results & Data Results & Data ([facility]) Vital Signs (Past 12 Hours) Vital Signs Temp Pulse Pulse Resp BP Pulse Ox 06/16/20 15:58 36.8 C 89 18 134/84 94 06/16/20 14:56 78 06/16/20 12:17 82 06/16/20 12:08 36.8 C 82 17 120/76 96 06/16/20 07:45 36.4 C L 78 116/77 94 06/16/20 07:23 76 Laboratory Results Laboratory Results - last 24 hr 06/15/20 06/15/20 06/15/20 17:07 17:08 17:24 Sodium Potassium Chloride Carbon Dioxide Anion Gap BUN Creatinine Est Cr Clr Drug Dosing Est GFR ( Amer) Est GFR (Non-Af Amer) BUN/Creatinine Ratio Glucose POC Glucose 63 L* 61 L* 71 Calcium 06/15/20 06/16/20 06/16/20 20:44 05:41 05:50 Sodium 142 Potassium Chloride 103 Carbon Dioxide 33 H Anion Gap 5.0 BUN 67 H Creatinine 2.11 H Est Cr Clr Drug Dosing 35.5 Est GFR ( Amer) 33.7 Est GFR (Non-Af Amer) 29.1 BUN/Creatinine Ratio 31.9 H Glucose 66 L POC Glucose 91 90 Calcium 9.0 06/16/20 06/16/20 06/16/20 05:51 07:58 07:58 Sodium Potassium 3.8 D Chloride Carbon Dioxide Anion Gap BUN Creatinine Est Cr Clr Drug Dosing Est GFR ( Amer) Est GFR (Non-Af Amer) BUN/Creatinine Ratio Glucose POC Glucose 67 L* 68 L* Calcium 06/16/20 06/16/20 06/16/20 08:48 11:26 16:25 Sodium Potassium Chloride Carbon Dioxide Anion Gap BUN Creatinine Est Cr Clr Drug Dosing Est GFR ( Amer) Est GFR (Non-Af Amer) BUN/Creatinine Ratio Glucose POC Glucose 144 H 145 H 100 H Calcium Medications Administered Current Inpatient Medications Acetaminophen (Acetaminophen 325 Mg Tab) 650 mg PO Q4H PRN PRN Reason: Pain or Fever Stop: 07/12/20 20:09 Last Admin: 06/16/20 00:25 Dose: 650 mg Documented by: Albuterol (Albut/Ipratrop 3mg/0.5mg Neb 3 Ml Vial) 3 ml NEB Q4R PRN PRN Reason: Shortness Of Breath Or Wheezing Stop: 07/15/20 10:59 Dextrose (Dextrose 50% 50 Ml Syringe) 25 - 50 ml IV UD PRN; Protocol PRN Reason: Hypoglycemia Protocol Stop: 07/12/20 20:09 Fluticasone Furoate (Fluticasone Furoate 100mcg 14 Puffs/Inhaler) 1 puffs INH DAILY JOY Stop: 07/13/20 08:59 Last Admin: 06/16/20 08:02 Dose: 1 puffs Documented by: Glucagon (Glucagon For Inj 1 Mg Vial) 1 mg SQ UD PRN; Protocol PRN Reason: Hypoglycemia Protocol Stop: 07/12/20 20:09 Glucose (Glucose 10 Tabs/Tube) 4 - 8 tabs PO UD PRN; Protocol PRN Reason: Hypoglycemia Protocol Stop: 07/12/20 20:09 Glucose (Glucose 40% Gel 15 Gm Tube) 15 - 30 gm PO UD PRN; Protocol PRN Reason: Hypoglycemia Protocol Stop: 07/12/20 20:09 Heparin Sodium (Porcine) (Heparin Sod 5,000 Unit/0.5 Ml Vial) 7,500 units SQ Q8 JOY Stop: 07/12/20 21:59 Last Admin: 06/16/20 14:46 Dose: 7,500 units Documented by: Bumetanide 2 mg/ Syringe 8 mls @ 4 mls/min IV QAM JOY Stop: 07/15/20 08:59 Last Admin: 06/15/20 09:38 Dose: 4 mls/min Documented by: Insulin Aspart (Insulin Aspart 100 Units/Ml 3 Ml Pen) 0 units SC ACHS JOY Stop: 07/12/20 20:59 Last Admin: 06/16/20 12:40 Dose: Not Given Documented by: Insulin Glargine (Insulin Glargine Solostar 100 Units/Ml 3 Ml Pen) 20 units SC BID JOY Stop: 07/12/20 20:59 Last Admin: 06/14/20 12:12 Dose: Not Given Documented by: Miscellaneous (Carbohydrates For Hypoglycemia ) 15 - 30 gm PO UD PRN PRN Reason: Hypoglycemia Protocol Stop: 07/12/20 20:09 Last Admin: 06/16/20 08:01 Dose: 15 gm Documented by: Oxycodone/Acetaminophen (Oxycodone/Acetaminophen 5mg/325mg Tab) 0.5 tab PO Q8H PRN PRN Reason: pain Stop: 06/26/20 20:24 Last Admin: 06/14/20 04:17 Dose: 0.5 tab Documented by: Polyethylene Glycol (Polyethylene (Miralax) 17 Gm Pack) 17 gm PO DAILY JOY Stop: 07/12/20 20:59 Last Admin: 06/16/20 08:02 Dose: 17 gm Documented by: Triamcinolone Acetonide (Triamcinolone Acet 0.1% Cr 15 Gm Tube) 1 appln TOP BID PRN PRN Reason: skin irritation Stop: 07/12/20 20:09 Umeclidinium/Vilanterol (Umeclidinium/Vilanterol 62.5/25mcg 7 Puffs/Inhaler) 1 puffs INH DAILY JOY; Protocol Stop: 07/13/20 08:59 Last Admin: 06/16/20 08:02 Dose: 1 puffs Documented by: PG Care Time/CCT Total # of Minutes Spent Total Time Spent with Patient: Total time spent is greater than 50% in coordination of care (as documented) at patient's floor/unit and/or counseling patient: Coding Level of Care Code 51237 Subseq Hosp Care Lvl 3 Diagnoses Acute respiratory failure with hypoxia J96.01 Shortness of breath R06.02 Asthma exacerbation J45.901 Diastolic heart failure I50.30 Pulmonary hypertension I27.20 Aortic valve stenosis I35.0 Edema of both lower legs R60.0 Neuroendocrine tumor of pancreas D3A.8 Constipation K59.00 Diabetes mellitus with neurological manifestations, uncontrolled E11.49; E11.65 Right bundle branch block I45.10 DVT prophylaxis Z29.9
[2020-06-17 06:12] LABS: BUN Creatinine Ratio 31.8 (10-20); Calcium 8.5 mg/dl (8.5-10.1); Creatinine Clr Calc Pharmacy 42.7 ml/min; Est GFR (African American) 42.6; Est GFR (Non-African American) 36.7; Potassium 3.7 mmol/L (3.5-5.1)
[2020-06-17] MEDS: HEPARIN SOD 5,000 UNIT/0.5 ML VIAL SQ SCH ×3 (06:33→21:40)
[2020-06-17] MEDS: oxyCODONE/ACETAMINOPHEN 5mg/325mg TAB PO PRN (06:43)
[2020-06-17] MEDS: INSULIN ASPART 100 UNITS/ML 3 ML PEN SC SCH ×4 (08:42→21:19)
[2020-06-17] MEDS: FLUTICASONE FUROATE 100MCG 14 PUFFS/INHALER INH SCH (08:44)
[2020-06-17] MEDS: UMECLIDINIUM/VILANTEROL 62.5/25MCG 7 PUFFS/INHALER INH SCH (08:44)
[2020-06-17] MEDS: POLYETHYLENE (MIRALAX) 17 GM PACK PO SCH (08:48)
--- NOTE | 2020-06-17 08:50 | Hospitalist Progress Note ---
Date of Service June 17, 2020 Assessment & Plan (1) Acute respiratory failure with hypoxia: Aim O2 sats > 94%. See below for differential. most likely acute diastolic heart failure he is on oxygen chronically, he says his breathing is always poor he is on 4L today, no distress, has dyspnea on exertion but he says this is normal resume Bumex at 1mg PO daily, will use this on discharge he will need a two step prior to discharge, not normally on this much oxygen two step ordered recommend he get PT/OT evaluations again today, he refuses (2) Shortness of breath: Chronically short of breath as per [facility] discharge summary in May 2019, however acutely much worse in the last 2 days prior to admission due to acute on chronic diastolic heart failure, no wheezing, doubt COPD exacerbation, stop steroids Will avoid CT for PE given current renal function but get US venous doppler to assess for DVT - DOPPLER NEGATIVE FOR DVT BILATERALLY breathing is a little better, stop Solu Medrol, use Bumex for diuresis fluid restrict to 1200mL / day two step prior to discharge (3) Asthma exacerbation: No prior PFTs available however noted on discharge summary and [facility] notes that he was diagnosed with obstructive lung disease. hold steroids for now lungs clear, no wheezing (4) Diastolic heart failure: Appears to be mainly right sided and prior diagnosis of pulmonary hypertension although unclear whether this is primary or secondary. acute on chronic heart failure with preserved EF significant edema in legs bilaterally, clearly hypervolemic, pitting to the knees per his daughter, he does not take Lasix every day at home like he is prescribed poor response to Lasix changed to Bumex 2mg IV on 06/13 Low Na diet, Fluid restrict 1200ml Measure I&Os Daily weights Cr sherita to 2.11 with Bumex, held Bumex 06/16 and now Cr is 1.7 will discharge on Bumex 1mg PO daily, encourage him to be compliant he is not interested in follow up with CHF clinic (5) Pulmonary hypertension: Likely suspect he has cor pulmonale causing the significant peripheral edema will make it difficult to diurese him without straining renal function (6) Aortic valve stenosis: No murmur on exam although very quiet heart sounds, no prior echo available. Patient does not wish to have TTE at current time as would not twisting frame changer. (7) Edema of both lower legs: As above regarding diastolic heart failure and suspected right heart failure US venous doppler b/l to rule out DVT - NEGATIVE (8) Neuroendocrine tumor of pancreas: Recently on Lanreotide injections. Per Dr Mcintosh's (PCP notes) patient wanting more comfort measures although this is not suggested in his heme/onc notes the patient mentions wanting more of a comfort approach today but when asked about getting CT scans if needed to work up his breathing he is on board with that. mild abdominal pain today but this is ongoing issue he confirms that he has been considering hospice, no formal decision made yet (9) Constipation: Start MiraLAX daily. 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 Repeat with AM labs. T2DM diet. Hold glimepiride during inpatient stay. hyperglycemic this morning, will give Lantus 20 units RECOMMEND REDUCING LANTUS ON DISCHARGE FROM 33 UNITS TO 20 UNITS DAILY has had some hypoglycemia while here (11) Right bundle branch block: Chronic per prior notes (12) DVT prophylaxis: Heparin 7500 units SQ Q8H (increased dosing due to weight). Close monitoring of Hgb given prior GI bleed and steroid use as above. Admission and Anticipated Discharge Date Admission Date: June 12, 2020 Subjective patient says he feels fine today, responding to the Bumex 1mg PO he got he says he wants to leave tomorrow afternoon, cannot stay any longer he says we are screwing up his medications, I explained that we had changed up his diuretic he just wants to be on higher level on oxygen, that's all he cares about I recommended he get PT/OT while here, he refuses, says he is fine at home, he just sits in his recliner he says he will be fine if he gets more than 1L of oxygen which he was on previously reivewed labs, Cr down to 1.7, will resume Bumex 1mg PO daily with potassium he is eating, moving his bowels Review of Systems Review of Systems: All systems reviewed & are unremarkable except as noted in Subjective Physical Exam Constitutional: well developed, + obese and + disheveled; no acute distress Neck: trachea midline, no thyromegaly + thick neck Respiratory: normal respiratory effort and + cough; no respiratory distress Auscultation: + diminished lung sounds (bases); no crackles, no rales and no wheezes Cardiovascular: Rate/Rhythm: regular rate and regular rhythm Heart Sounds: normal S1 and normal S2; no murmur Vessels: no JVD Extremities: normal capillary refill and + edema (pitting edema to knees bilaterally) Gastrointestinal (Abdomen): normal bowel sounds, soft, nontender, no hepatosplenomegaly Musculoskeletal: no cyanosis or clubbing, extremities motor strength 5/5 Neurologic: patellar DTR's 2+ bilat, sensation intact and PERRL, EOMI, accommodation nl, no face palsy, no dysarthria Psychiatric: A+Ox3, euthymic affect Results & Data Results & Data ([facility]) Vital Signs (Past 12 Hours) Vital Signs Temp Pulse Resp BP BP Pulse Ox 06/17/20 07:38 36.5 C 81 20 111/70 92 06/17/20 04:34 36.4 C L 87 18 133/82 90 06/17/20 00:11 36.5 C 89 18 131/81 91 Laboratory Results Laboratory Results - last 24 hr 06/16/20 06/16/20 06/16/20 11:26 16:25 21:02 Sodium Potassium Chloride Carbon Dioxide Anion Gap BUN Creatinine Est Cr Clr Drug Dosing Est GFR ( Amer) Est GFR (Non-Af Amer) BUN/Creatinine Ratio Glucose POC Glucose 145 H 100 H 139 H Calcium 06/17/20 06/17/20 05:18 07:35 Sodium 142 Potassium 3.7 Chloride 105 Carbon Dioxide 33 H Anion Gap 4.0 BUN 55 H Creatinine 1.74 H D Est Cr Clr Drug Dosing 42.7 Est GFR ( Amer) 42.6 Est GFR (Non-Af Amer) 36.7 BUN/Creatinine Ratio 31.8 H Glucose 227 H POC Glucose 211 H Calcium 8.5 Medications Administered Current Inpatient Medications Acetaminophen (Acetaminophen 325 Mg Tab) 650 mg PO Q4H PRN PRN Reason: Pain or Fever Stop: 07/12/20 20:09 Last Admin: 06/16/20 00:25 Dose: 650 mg Documented by: Albuterol (Albut/Ipratrop 3mg/0.5mg Neb 3 Ml Vial) 3 ml NEB Q4R PRN PRN Reason: Shortness Of Breath Or Wheezing Stop: 07/15/20 10:59 Bumetanide (Bumetanide 1 Mg Tab) 1 mg PO QAM [facility] Stop: 07/17/20 08:59 Dextrose (Dextrose 50% 50 Ml Syringe) 25 - 50 ml IV UD PRN; Protocol PRN Reason: Hypoglycemia Protocol Stop: 07/12/20 20:09 Fluticasone Furoate (Fluticasone Furoate 100mcg 14 Puffs/Inhaler) 1 puffs INH DAILY JOY Stop: 07/13/20 08:59 Last Admin: 06/17/20 08:44 Dose: 1 puffs Documented by: Glucagon (Glucagon For Inj 1 Mg Vial) 1 mg SQ UD PRN; Protocol PRN Reason: Hypoglycemia Protocol Stop: 07/12/20 20:09 Glucose (Glucose 10 Tabs/Tube) 4 - 8 tabs PO UD PRN; Protocol PRN Reason: Hypoglycemia Protocol Stop: 07/12/20 20:09 Glucose (Glucose 40% Gel 15 Gm Tube) 15 - 30 gm PO UD PRN; Protocol PRN Reason: Hypoglycemia Protocol Stop: 07/12/20 20:09 Heparin Sodium (Porcine) (Heparin Sod 5,000 Unit/0.5 Ml Vial) 7,500 units SQ Q8 JOY Stop: 07/12/20 21:59 Last Admin: 06/17/20 06:33 Dose: 7,500 units Documented by: Bumetanide 2 mg/ Syringe 8 mls @ 4 mls/min IV QAM JOY Stop: 07/15/20 08:59 Last Admin: 06/15/20 09:38 Dose: 4 mls/min Documented by: Insulin Aspart (Insulin Aspart 100 Units/Ml 3 Ml Pen) 0 units SC ACHS JOY Stop: 07/12/20 20:59 Last Admin: 06/17/20 08:42 Dose: 10 units Documented by: Insulin Glargine (Insulin Glargine Solostar 100 Units/Ml 3 Ml Pen) 20 units SC QAM [facility] Stop: 07/17/20 08:59 Miscellaneous (Carbohydrates For Hypoglycemia ) 15 - 30 gm PO UD PRN PRN Reason: Hypoglycemia Protocol Stop: 07/12/20 20:09 Last Admin: 06/16/20 08:01 Dose: 15 gm Documented by: Oxycodone/Acetaminophen (Oxycodone/Acetaminophen 5mg/325mg Tab) 0.5 tab PO Q8H PRN PRN Reason: pain Stop: 06/26/20 20:24 Last Admin: 06/17/20 06:43 Dose: 0.5 tab Documented by: Polyethylene Glycol (Polyethylene (Miralax) 17 Gm Pack) 17 gm PO DAILY JOY Stop: 07/12/20 20:59 Last Admin: 06/17/20 08:48 Dose: 17 gm Documented by: Potassium Chloride (Potassium Chloride 20 Meq Tabcr) 20 meq PO QAM JOY Stop: 07/17/20 08:59 Triamcinolone Acetonide (Triamcinolone Acet 0.1% Cr 15 Gm Tube) 1 appln TOP BID PRN PRN Reason: skin irritation Stop: 07/12/20 20:09 Umeclidinium/Vilanterol (Umeclidinium/Vilanterol 62.5/25mcg 7 Puffs/Inhaler) 1 puffs INH DAILY JOY; Protocol Stop: 07/13/20 08:59 Last Admin: 06/17/20 08:44 Dose: 1 puffs Documented by: PG Care Time/CCT Total # of Minutes Spent Total Time Spent with Patient: Total time spent is greater than 50% in coordination of care (as documented) at patient's floor/unit and/or counseling patient: Coding Level of Care Code 45037 Subseq Hosp Care Lvl 2 Diagnoses Acute respiratory failure with hypoxia J96.01 Shortness of breath R06.02 Asthma exacerbation J45.901 Diastolic heart failure I50.30 Pulmonary hypertension I27.20 Aortic valve stenosis I35.0 Edema of both lower legs R60.0 Neuroendocrine tumor of pancreas D3A.8 Constipation K59.00 Diabetes mellitus with neurological manifestations, uncontrolled E11.49; E11.65 Right bundle branch block I45.10 DVT prophylaxis Z29.9
[2020-06-17] MEDS: BUMETANIDE 1 MG TAB PO SCH (09:08)
[2020-06-17] MEDS: POTASSIUM CHLORIDE CRTAB 20 MEQ TABCR PO SCH (09:08)
[2020-06-17] MEDS: INSULIN GLARGINE SOLOSTAR 100 UNITS/ML 3 ML PEN SC SCH (09:08)
[2020-06-18] MEDS: HEPARIN SOD 5,000 UNIT/0.5 ML VIAL SQ SCH ×2 (05:40→13:30)
[2020-06-18 07:19] LABS: BUN Creatinine Ratio 27.5 (10-20); Calcium 8.5 mg/dl (8.5-10.1); Creatinine Clr Calc Pharmacy 45.1 ml/min; Est GFR (African American) 45.1; Est GFR (Non-African American) 38.9; Potassium 3.7 mmol/L (3.5-5.1)
[2020-06-18] MEDS: UMECLIDINIUM/VILANTEROL 62.5/25MCG 7 PUFFS/INHALER INH SCH (07:53)
[2020-06-18] MEDS: FLUTICASONE FUROATE 100MCG 14 PUFFS/INHALER INH SCH (07:54)
[2020-06-18] MEDS: POTASSIUM CHLORIDE CRTAB 20 MEQ TABCR PO SCH (07:54)
[2020-06-18] MEDS: BUMETANIDE 1 MG TAB PO SCH (07:54)
[2020-06-18] MEDS: INSULIN GLARGINE SOLOSTAR 100 UNITS/ML 3 ML PEN SC SCH (07:54)
[2020-06-18] MEDS: POLYETHYLENE (MIRALAX) 17 GM PACK PO SCH (08:02)
[2020-06-18] MEDS: INSULIN ASPART 100 UNITS/ML 3 ML PEN SC SCH ×2 (08:03→12:18)
--- NOTE | 2020-06-18 09:38 | Medical Student Progress Note ---
Date of Service June 18, 2020 Assessment & Plan Admission and Anticipated Discharge Date Admission Date: June 12, 2020 Acute respiratory failure with hypoxia * Prescription for home Oxygen * Albuterol sulfate (90 mcg) * Fluticasone fur. 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 He is on hospital day 6. He presented to the ED on 06/12 with worsening shortness of breath of exertion and bilateral lower extremity edema. He was found to be in fluid overload at that time with a pleural effusion and treated with Lasix which was switched to Bumex on 06/13. On 06/13 he was found to have right sided heart failure with preserved ejection fraction. 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 He switched it himself to 5L and saw improvement. He also has a prolonged history of lower extremity edema for the passed few months and admits to not taking his Lasix regularly. He lives alone but does have his children check on him frequently. At this time he feels his breathing has improved but not his edema. He has abdominal pain. He has a nonproductive cough. He is not experiencing chest pain, visual changes, nausea, vomiting, or diarrhea. PMX Pancreatic neuroendocrine tumor with liver metastasis DM2 COPD Hx of a GI bleed PSX Cardiac catheterization Hemorrhoidectomy Left knee replacement Social hx Chewed tobacco for +60 years Lives alone Review of Systems Constitutional: + fatigue Generalized pain Respiratory: + cough and + dyspnea on exertion Cardiovascular: + orthopnea and + edema Gastrointestinal: + abdominal pain and + constipation Neurologic: + headache(s) Physical Exam Respiratory: Auscultation: lungs clear to auscultation bilaterally Cardiovascular: Rate/Rhythm: regular rate Extremities: normal capillary refill, + calf tenderness and + edema 4+ bilateral pitting edema Gastrointestinal (Abdomen): Not performed due to b/l lower abdominal pain Results & Data ([facility]) Vital Signs (Past 12 Hours) Vital Signs Temp Pulse Pulse Resp BP BP Pulse Ox 06/18/20 07:32 36.6 C 78 20 119/77 90 06/18/20 07:21 76 06/18/20 03:39 36.5 C 79 18 129/86 93 06/17/20 23:15 36.5 C 83 18 126/83 92 Pertinent labs: BUN 46, Creatinine 1.66, Bun:Creatinine 27.5 Glucose 156
[2020-06-18 11:29] VITALS: PULSE 79; TEMP 97.5; O2SAT 93
--- NOTE | 2020-06-18 13:23 | Discharge Summary ---
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 His daughter reports he is supposed to take his lasix more often than he does and his shortness of breath and leg swelling have both significantly increased over the last 2-3 days. He is now unable to exert himself in any significant way without getting extremely short of breath. No fevers or chills, chest pain, cough, known COVID-19 exposure. No worse on lying down, he actually feels his breathing improves while lying down. Tried his albuterol inhaler this morning. He reports never smoking but was diagnosed with asthma/COPD within the last few years and takes Trelegy Ellipta daily. Prior discharge summary from [facility] notes obstructive lung disease with prior PFTs although results not available on this admission. History taking is relatively limited from the patient and his therefore much was taken from prior notes in EHR. Per last PCP note patient wanting more of a comfort measures only approach although wishes to have workup for his breathing at the current time and does not wish to only be treated symptomatically. Much of the last PCP note patient has refused increasing treatment for his diabetes, aortic stenosis etc... However heme/onc note reports ongoing treatment with no mention of plans for a more palliative care approach. In the ER CXR showed right sided pleural effusion with right lung base consolidation suggestive of atelectasis vs. pneumonia. He was treated for suspected hypervolemia with Lasix 20mg IV. Principal Diagnosis Acute on chronic diastolic CHF, Pulmonary hypertension, Acute on chronic respiratory failure with hypoxia Discharge Exam Constitutional WD/WN, vitals as above Eyes + anicteric sclerae Neck trachea midline, no thyromegaly Respiratory normal respiratory effort, lungs clear to auscultation (disctant lung sounds) Cardiovascular Rate/Rhythm: regular rate and regular rhythm Heart Sounds: no murmur Extremities: + edema (3-4+ pitting edema legs to the knees bilat) Chest (Breasts) Chest: normal inspection of chest Gastrointestinal (Abdomen) normal bowel sounds, soft, nontender, no hepatosplenomegaly Musculoskeletal Extremities: extremities normal to inspection; no cyanosis and no clubbing Skin no rashes, warm and dry Neurologic moves all extremities and awake; no focal motor deficits Psychiatric A+Ox3, euthymic affect Lymphatic no lymphedema Discharge Data Allergies Allergy/AdvReac Type Severity Reaction Status Date / Time cephalexin Allergy Unknown UNKNOWN Verified 06/12/20 17:22 gemfibrozil Allergy Unknown UNKNOWN Verified 06/12/20 17:22 lovastatin Allergy Unknown UNKNOWN Verified 06/12/20 17:22 Consultations 06/12/20 16:27 ED Decision to Admit Stat Ordered Studies 06/12/20 17:52 US venous doppler LE BI Stat CXR Hospital Course (1) Acute respiratory failure with hypoxia: Aim O2 sats > 94%. See below for differential. most likely acute diastolic heart failure, now improved, on 4LNC which is increased from his baseline of 2L he is on oxygen chronically, he says his breathing is always poor has dyspnea on exertion but he says this is normal changed to Bumex at 1mg PO daily, will use this on discharge and dc home lasix two step prior to discharge, shpows needs 4LNC continuously and this will be arranged through case mangement recommend he get PT/OT evaluation, he refuses (2) Shortness of breath: Chronically short of breath as per [facility] discharge summary in May 2019, however acutely much worse in the last 2 days prior to admission due to acute on chronic diastolic heart failure, no wheezing, doubt COPD exacerbation, stopped steroids Will avoid CT for PE given current renal function but get US venous doppler to assess for DVT - DOPPLER NEGATIVE FOR DVT BILATERALLY breathing is a little better, use Bumex for diuresis fluid restrict to 1500mL / day on discharge, daily weights, low sodium diet Improved overall on higher amount of O2 Ultimately, he wishes to pursue comfort care as per previous d/w his PCP in setting of his metastatic neuroendocrine tumor (3) Asthma exacerbation: No prior PFTs available however noted on discharge summary and [facility] notes that he was diagnosed with obstructive lung disease. no steroids lungs clear, no wheezing (4) Diastolic heart failure: Appears to be mainly right sided and prior diagnosis of pulmonary hypertension although unclear whether this is primary or secondary. acute on chronic heart failure with preserved EF significant edema in legs bilaterally, clearly hypervolemic, pitting to the knees per his daughter, he does not take Lasix every day at home like he is prescribed poor response to Lasix changed to Bumex 2mg IV on 06/13 Low Na diet, Fluid restrict 1200ml Measure I&Os Daily weights Cr sherita to 2.11 with Bumex, held Bumex 06/16 and now Cr is 1.6 will discharge on Bumex 1mg PO daily, encourage him to be compliant he is not interested in follow up with CHF clinic check BMP in 2-3 days (5) Pulmonary hypertension: Likely suspect he has cor pulmonale causing the significant peripheral edema will make it difficult to diurese him without straining renal function (6) Aortic valve stenosis: No murmur on exam although very quiet heart sounds, no prior echo available. 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 (7) Edema of both lower legs: As above regarding diastolic heart failure and suspected right heart failure US venous doppler b/l to rule out DVT - NEGATIVE (8) Neuroendocrine tumor of pancreas: Recently on Lanreotide injections. Per Dr Mcintosh's (PCP notes) patient wanting more comfort measures although this is not suggested in his heme/onc notes the patient mentions wanting more of a comfort approach today but when asked about getting CT scans if needed to work up his breathing he is on board with that. mild abdominal pain today but this is ongoing issue he confirms that he has been considering hospice, no formal decision made yet (9) Constipation: Start MiraLAX daily. 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 Repeat with AM labs. T2DM diet. Held glimepiride during inpatient stay. RECOMMEND REDUCING LANTUS ON DISCHARGE FROM 33 UNITS TO 20 UNITS DAILY has had some hypoglycemia while here (11) Right bundle branch block: Chronic per prior notes (12) DVT prophylaxis: Heparin 7500 units SQ Q8H (increased dosing due to weight). Close monitoring of Hgb given prior GI bleed and steroid use as above. Dispo-stable for dc to home Total Time Total Time Spent Total Time Spent (In Minutes): 35 min Total Time Includes: Examination of the Patient, Discharge Planning and Medication Reconciliation Discharge Plan Discharge Items Patient Disposition: Home - Home Health Services Reason For Visit: SOB, COPD EXACERBATION VS DIASTOLIC HEART FAILURE Discharge Diagnosis: Acute on chronic respiratory failure with hypoxia, Acute diastolic congestive heart failure, pulmonary hypertension Condition on Discharge: Fair Activity: Resume your previous activity Non-emergency contact: Primary Care Provider Call non-emergency contact if: you have any medication questions and your symptoms worsen Follow-up/Referrals: Damien Mcintosh MD [Primary Care Provider] - (Follow up within 1 week.) Diet: Low Sodium (2gm) Addtl Attending Provider Instructions: Please continue the new water pill called Bumex 1mg by mouth once daily and eat a low sodium diet. You should limit your fluid intake to no more than 1500mL/day and weight yourself daily. You are now requiring 4L of oxygen via your nasal cannula continuously. This will be arranged through [facility] for you. You can restart your lisinopril tomorrow. It was held while you were here for some kidney failure which is now improving. Your potassium dose was reduced to just 20meq once daily. Your Lantus dose was reduced to just 20 units once daily. Follow up with your PCP within 1 week after discharge. Call your Primary Care doctor if any of the following symptoms or problems start or get worse: * Shortness of breath or difficulty breathing * Wake up at night short of breath * Chest pain * Cough * Swelling of your hands, feet, or legs * More fatigued or tired with your normal activity * Palpitations - sudden fast heart beats WEIGHT * Weigh yourself every morning after using the bathroom. * Use the same scale. * Wear the same amount of clothing. * Write your weight down on a chart. * Call your Primary Care doctor if you gain more than 2-3 pounds in 1-2 days. MEDICATIONS * Use this discharge instruction sheet for medication instructions. * Take your medications at the time your doctor ordered. * Do not skip a dose of your medicines. * If you miss a dose of medicine, take it as soon as possible, but DO NOT DOUBLE A DOSE. * Read your medicine information when you get home. * Know all of the side effects of your medicine. If in doubt, ask your pharmacist * Call your Primary Care doctor's office if you have any side effects. * Be sure all of your doctors know what medicine and herbs you take (including cold, flu, and herbal medicine). Take the following with you to your follow-up doctor appointments: * Weight Chart * Medication List * List of questions Do not drink excessive alcohol, beer or wine. Pending Studies at Discharge: No Stand-Alone Forms: My Better Walk, Smoking Cessation Medications and DC Order Prescriptions: New bumetanide 1 mg Tablet 1 mg PO QAM Qty: 30 RF: 0 Continued triamcinolone acetonide 0.1 % cream 1 appln TOP BID PRN (Reason: skin irritation) Qty: 80 RF: 1 albuterol sulfate [ProAir HFA] 90 mcg/actuation HFA aerosol inhaler 1 inh INH Q4H PRN (Reason: shortness of breath) Qty: 8.5 RF: 3 Trelegy Ellipta 100-62.5-25 mcg blister with device 1 puffs INH DAILY RF: 0 oxycodone-acetaminophen 2.5-325 mg tablet 1 tab PO Q8H MDD 3 daily PRN (Reason: pain) Qty: 90 RF: 0 glimepiride 4 mg tablet 4 mg PO BIDM Qty: 60 RF: 11 lisinopril 30 mg tablet 30 mg PO DAILY Qty: 34 RF: 11 Changed potassium chloride 20 mEq tablet extended release 20 meq PO QAM Qty: 30 RF: 0 Toujeo Max U-300 SoloStar 300 unit/mL (3 mL) insulin pen 20 units SQ HS 90 Days Qty: 12 RF: 3 Discontinued furosemide 20 mg tablet 20 mg PO DAILY Qty: 90 RF: 3 Discharge Orders: Discharge Order (Routine); Ordered 06/18/20 Ordered By: Tasia Mccurdy/Other Patient Handouts: Managing Type 2 Diabetes Admission Data Admit Date/Time: 06/12/20 18:13 Attending Provider: Tasia Hoyos Admit Provider: Harjinder Castro Primary Care Provider: Damien Mcintosh Other Providers: Harjinder Castro ; [place] Coding Level of Care Code D/C Day Management >30 mins Diagnoses Acute respiratory failure with hypoxia J96.01 Shortness of breath R06.02 Asthma exacerbation J45.901 Diastolic heart failure I50.30 Pulmonary hypertension I27.20 Aortic valve stenosis I35.0 Edema of both lower legs R60.0 Neuroendocrine tumor of pancreas D3A.8 Constipation K59.00 Diabetes mellitus with neurological manifestations, uncontrolled E11.49; E11.65 Right bundle branch block I45.10 DVT prophylaxis Z29.9
[2020-06-18 14:05] VITALS: BP 129/86
--- NOTE | 2020-06-29 09:57 | Coding Query ---
CHRONIC KIDNEY DISEASE To promote full compliance with coding requirements relating to patient care, physician participation is requested in all cases of window repairer uncertainty. Please assist us with the question(s) below: Coding Question(s): The record reflects the following clinical findings: ER H&P documents, "Creatinine does appear to be rising to 1.7 today from previous baseline around 1.2-1.3. Small troponin elevation noted without prior testing in our system unsure if chronic or acute. Patient does not wish for extensive cardiac management at this point I feel that this is likely more demand related to some CKD as well as fluid overload state.". Please specify the known or suspected type of CKD by placing an "X" within the parenthesis (x). If other, please document type. Please document Staging if known: ( ) Stage I >90 Kidney damage with normal or elevated GFR. (x ) Stage II 60-89 Kidney damage with mildly decreased kidney function ( ) Stage III 30-59 Moderately decreased kidney function ( ) Stage IV 15-29 Severely decreased kidney function ( ) Stage V <15 Renal failure (or dialysis) ( ) End Stage ( ) Unknown ( ) Ruled-out - No CKD ( ) Other: Please Specify Thank you Jillian SHIELDS
== END 2020-06-18 15:07 | disposition home health service (06) | DRG 291 ==
LOC: ED 13:41 → 2N 18:13 → SUATTDRO 18:13 → 2N 19:20